=== PATIENT | male | born 1995 | race Two or more races ===

== ENCOUNTER 2024-10-20 12:29 | Inpatient (IN) | payer OTHER ==
[~2024-10-20] VITALS: Ht 170.2 cm; Wt 89.5 kg
--- NOTE | 2024-10-20 13:51 | ED.PDOC ---
GI ASSESSMENT HPI Comments 28 y.o male presents to the ED for a chief complaint of right lower quadrant pain associated with dysuria that started 5 days ago. Patient describes pain as sharp, constant and non radiating with no alleviating factors. Patient went to urgent care for his pain, had blood work and urinalysis done which all came back normal but today states pain worsened. Patient denies any nausea, vomiting, diarrhea, fever, chills, rectal bleeding, hematuria or back pain. Chief Complaint: Abdominal Pain Time Seen by MD: 13:45 Reviewed Notes: Nurses Notes, Medications, Allergies Allergies: Coded Allergies: Penicillins (Verified Allergy, Severe, 10/20/24) Information Source: Patient Mode of Arrival: Ambulatory Timing: Days (5) Duration: Since onset Quality: Sharp Vomitus: None Stool: Normal Severity: Moderate Recent: None Recent Hx of: None Pain Location: RLQ Modifying Factors: Nothing Associated sign and symptoms: Abdominal Pain Past Medical History PAST MEDICAL HISTORY: Asthma, Denies Surgical History: Denies all surgeries Family History Family History: Reviewed,noncontributory to illness Social History Smoker: Non-Smoker Alcohol: Occasionally Drugs: Denies Drug Use Lives In: Home Constitutional: denies: chills, diaphoresis, fatigue, fever, malaise, sweats, weakness, others EENTM: denies: blurred vision, double vision, ear bleeding, ear discharge, ear drainage, ear pain, ear ringing, eye pain, eye redness, hearing loss, mouth pain, mouth swelling, nasal discharge, nose bleeding, nose congestion, nose pain, photophobia, tearing, throat pain, throat swelling, voice changes, others Respiratory: denies: cough, hemoptysis, orthopnea, SOB at rest, shortness of breath, SOB with excertion, stridor, wheezing, others Cardiovascular: denies: chest pain, dizzy spells, diaphoresis, Dyspnea on exertion, edema, irregular heart beat, left arm pain, lightheadedness, palpitations, PND, syncope, others Gastrointestinal: reports: abdominal pain; denies: abdomen distended, blood streaked bowels, constipated, diarrhea, dysphagia, difficulty swallowing, hematemesis, melena, nausea, poor appetite, poor fluid intake, rectal bleeding, rectal pain, vomiting, others Genitourinary: denies: burning, dysuria, flank pain, frequency, hematuria, incontinence, penile discharge, penile sore, pain, testicle pain, testicle swelling, urgency, others Neurological: denies: dizziness, fainting, headache, left sided numbness, left sided weakness, numbness, paresthesia, pre-existing deficit, right sided numbness, right sided weakness, seizure, speech problems, tingling, tremors, weakness, others Musculoskeletal: denies: back pain, gout, joint pain, joint swelling, muscle pain, muscle stiffness, neck pain, others Integumetry: denies: bruises, change in color, change in hair/nails, dryness, laceration, lesions, lumps, rash, wounds, others Allergic/Immunocompromised: denies: Difficulty Healing, Frequent Infections, Hives, Itching, others Hematologic/Lymphatic: denies: anemia, blood clots, easy bleeding, easy bruising, swollen glands, others Endocrine: denies: excessive hunger, excessive sweating, excessive thirst, excessive urination, flushing, intolerance to cold, intolerance to heat, unexplained weight gain, unexplained weight loss, others Psychiatric: denies: anxiety, bipolar disorder, depression, hopeless, panic disorder, schizophrenia, sleepless, suicidal, others All Other Systems: Reviewed and Negative Physical Exam General Appearance: Mild Distress, Normal HEENT: Normal ENT Inspection, Pharynx Normal, TMs Normal Neck: Full Range of Motion, Non-Tender, Normal, Normal Inspection Respiratory: Chest Non-Tender, Lungs Clear, No Accessory Muscle Use, No Respiratory Distress, Normal Breath Sounds Cardiovascular: No Edema, No JVD, No Murmur, No Gallop, Normal Peripheral Pulses, Regular Rate/Rhythm Breast Exam: Deferred Gastrointestinal: RLQ, Tenderness Genitalia: Deferred Pelvic: Deferred Rectal: Deferred Extremities: No calf tenderness, Normal capillary refill, Normal inspection, Normal range of motion, Non-tender, No pedal edema Musculoskeletal : Apperance: Normal Neurologic: Alert, 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 Was a procedure done?: No GI differential Dx Differential Diagnosis: Appendicitis, Esophagitis, Gastroenteritis, Electrolyte Imbalance, Viral X-Ray, Labs, Meds, VS Vital Signs Date Time Temp Pulse Resp B/P (MAP) Pulse Ox O2 Delivery O2 Flow Rate FiO2 10/20/24 12:42 98.2 95 15 163/92 (115) 97 98.2 Lab Test 10/20/24 14:04 10/20/24 13:44 Range/Units White Blood Count 9.9 4.4-10.8 10^3/uL Red Blood Count 5.28 4.5-5.90 10^6/uL Hemoglobin 15.0 13.5-17.5 g/dL Hematocrit 45.0 41.0-53.0 % Mean Corpuscular Volume 85.2 80.0-100.0 fL Mean Corpuscular Hemoglobin 28.5 28.0-32.0 pg Mean Corpuscular Hemoglobin Concent 33.4 32.0-36.0 g/dL Red Cell Distribution Width 13.8 11.8-14.3 % Platelet Count 197 140-450 10^3/uL Mean Platelet Volume 9.8 6.9-10.8 fL Neutrophils (%) (Auto) 73.2 37.0-80.0 % Lymphocytes (%) (Auto) 11.4 10.0-50.0 % Monocytes (%) (Auto) 6.0 0.0-12.0 % Eosinophils (%) (Auto) 9.1 H 0.0-7.0 % Basophils (%) (Auto) 0.3 0.0-2.0 % Neutrophils # (Auto) 7.2 1.6-8.6 10 ^3/uL Lymphocytes # (Auto) 1.1 0.4-5.4 10 ^3/uL Monocytes # (Auto) 0.6 0-1.3 10 ^3/uL Eosinophils # (Auto) 0.9 H 0-0.8 10 ^3/uL Basophils # (Auto) 0 0-0.2 10 ^3/uL Nucleated Red Blood Cells 0.1 % Sodium Level 141 136-145 mmol/L Potassium Level 4.0 3.5-5.1 mmol/L Chloride Level 107 98-107 mmol/L Carbon Dioxide Level 28 20-31 mmol/L Anion Gap 6 5-15 Blood Urea Nitrogen 14 9-23 mg/dL Creatinine 1.08 0.700-1.30 mg/dL Glomerular Filtration Rate Calc 96 >90 mL/min BUN/Creatinine Ratio 13.0 10.0-20.0 Serum Glucose 103 74-106 mg/dL Calcium Level 10.0 8.7-10.4 mg/dL Total Bilirubin 0.4 0.2-1.0 mg/dL Aspartate Amino Transferase (AST) 11 L 13-40 U/L Alanine Aminotransferase (ALT) 14 7-40 U/L Alkaline Phosphatase 96 46-116 U/L Total Protein 7.6 5.7-8.2 g/dL Albumin 4.8 3.2-4.8 g/dL Lipase 72 H 12-53 U/L Urine Color Yellow Yellow Urine Clarity Clear Clear Urine pH 6.0 5.0-9.0 Urine Specific [place] 1.029 1.001-1.035 Urine Protein Negative Negative Urine Ketones Negative Negative Urine Blood Trace H Negative /uL Urine Nitrite Negative Negative Urine Bilirubin Negative Negative Urine Urobilinogen Normal Negative mg/dL Urine Leukocyte Esterase Negative Negative /uL Urine RBC 2 0 - 3 /hpf Urine Microscopic WBC 0-3 /HPF Urine Squamous Epithelial Cells None seen <5 /hpf Urine Bacteria None seen None Seen /hpf Urine Mucus Few None Seen Urine Glucose Normal Normal mg/dL Current Medications Medications (Trade) Dose Ordered Sig/Tree Route Start Time Stop Time Status Last Admin Sodium Chloride 1,000 ml @ 1,000 mls/hr Q1H ONCE IVB 10/20/24 14:00 10/20/24 14:59 DC 10/20/24 14:03 EXAM: CT CT AB PEL WITH IV CON ONLY HISTORY: RLQ pain COMPARISON: None TECHNIQUE: Helical CT images of the abdomen and pelvis were performed with IV contrast. Sagittal and coronal reformatted images were obtained. This CT exam was performed using 1 or more of the following dose reduction techniques: Automated exposure control, adjustment of the mA and/or kv according to patient size, or the use of iterative reconstruction techniques. Radiation Dose Information: CT Dose: CTDI volume is 12.12 mGy. Dose-length product is 644.4 mGy*cm FINDINGS: CT abdomen: The lung bases are clear. The heart is not enlarged. The liver, spleen, gallbladder, pancreas, kidneys, and adrenal glands are unremarkable. No abdominal aortic aneurysm or dissection. CT pelvis: No abnormal bowel dilatation or free air. There is low volume free fluid in the pelvis. The appendix is dilated up to 2.3 cm with an appendicolith present, with surrounding fluid and fat stranding. The appendix is located infracecal. There is wall thickening of the cecum. There are multiple prominent lymph nodes in the right lower quadrant mesenteric fat. The urinary bladder is unremarkable. The prostate is mildly enlarged. IMPRESSION: 1. Acute appendicitis and inflammation of the adjacent cecum. 2. Mild prostatic enlargement. 3. No evidence of bowel obstruction or other acute process in the abdomen or pelvis. Findings were discussed with Dr. Alvarez by telephone on 10/20/2024 at 5:52 p.m. CDT Time of 1ST Reevaluation: 13:48 Reevaluation 1ST: Unchanged Patient Education/Counseling: Diagnosis, Treatment, Prognosis Family Education/Counseling: No Family Present Departure 1 Departure Time of Disposition: 16:28 Impression: Primary Impression: Appendicitis Disposition: 09 ADMITTED INPATIENT Admit to: Med Surg Condition: Guarded Discharged With: Self Comments Right Lower Quadrant Pain - Acute Appendicitis Chief Complaint: Right lower quadrant abdominal pain History of Present Illness: 28-year-old male presenting with four days of progressively worsening right lower quadrant abdominal pain accompanied by nausea. The pain has been gradually increasing in intensity over this period. Review of Systems: Positive for: - Abdominal pain in right lower quadrant - Nausea All other systems reviewed and negative Lab Results: WBC: 9.9 (upper limit of normal) Lipase: 72 (borderline elevated) Other labs unremarkable Imaging and Other Relevant Results: CT Abdomen/Pelvis findings: - Enlarged appendix measuring 2.3 cm - Presence of appendicolith - Surrounding inflammatory stranding - Thickening of adjacent cecum Medical Decision Making: Summary Statement: 28-year-old male presenting with classic symptoms and radiological findings consistent with acute appendicitis. Problem List: 1. Acute appendicitis with appendicolith Differential Diagnosis: 1. Acute appendicitis (most likely) 2. Mesenteric adenitis 3. Cecal diverticulitis 4. Right-sided colitis ED Course: Patient evaluated with labs and CT imaging. Surgical consultation obtained from Dr. Calixto. Plan for hospital admission and likely appendectomy. Assessment and Plan: 1. Acute Appendicitis - CT findings consistent with acute appendicitis showing enlarged appendix with appendicolith and surrounding inflammation - Surgical consultation obtained from Dr. Calixto - Patient to be admitted to the hospital - Plan for likely appendectomy - NPO status - Continue to monitor clinical status Billing Information: ICD-10: K35.80 - Unspecified acute appendicitis Critical Care Note Critical Care Time?: Yes (35 min-critical care time only) Critical care comment: Total critical care time: Approximately 36 minutes Due to a high probability of clinically significant, life threatening deterioration, the patient required my highest level of preparedness to intervene emergently and I personally spent this critical care time directly and personally managing the patient. This critical care time included obtaining a history; examining the patient; pulse oximetry; ordering and review of studies; arranging urgent treatment with development of a management plan; evaluation of patient's response to treatment; frequent reassessment; and, discussions with other providers. This critical care time was performed to assess and manage the high probability of imminent, life-threatening deterioration that could result in multi-organ failure. It was exclusive of separately billable procedures and treating other patients. Stability Stability form required: No I personally scribed for SAMUEL ALVAREZ MD ([email or web address]) on 10/20/24 at 13:51. Electronically submitted by Chetna Briones ([facility]). I personally scribed for SAMUEL ALVAREZ MD ([email or web address]) on 10/20/24 at 16:12. Electronically submitted by Chetna Briones ([facility]). SAMUEL ALVAREZ MD Oct 20, 2024 13:51
[2024-10-20] MEDS: SODIUM CHLORIDE 0.9% 1,000 ML IVB ONE (14:03)
[2024-10-20 14:39] LABS: Basophils # (auto) 0 10 ^3/uL (0-0.2); Basophils % (auto) 0.3 % (0.0-2.0); Eosinophils # (auto) 0.9 10 ^3/uL (0-0.8); Eosinophils % (auto) 9.1 % (0.0-7.0); Lymphocytes # (auto) 1.1 10 ^3/uL (0.4-5.4); Lymphocytes % (auto) 11.4 % (10.0-50.0); Mean Corpuscular Hemoglobin 28.5 pg (28.0-32.0); Mean Corpuscular Hgb Conc. 33.4 g/dL (32.0-36.0); Mean Corpuscular Volume 85.2 fL (80.0-100.0); Monocytes # (auto) 0.6 10 ^3/uL (0-1.3); Neutrophils # (auto) 7.2 10 ^3/uL (1.6-8.6); Neutrophils % (auto) 73.2 % (37.0-80.0); Nucleated Red Blood Cells % 0.1 %; Platelet Count (auto) 197 10^3/uL (140-450); Red Blood Cells 5.28 10^6/uL (4.5-5.90); Red Cell Distribution Width 13.8 % (11.8-14.3); White Blood Cell 9.9 10^3/uL (4.4-10.8)
[2024-10-20 14:44] LABS: Alanine Aminotransferase 14 U/L (7-40); Albumin 4.8 g/dL (3.2-4.8); Alkaline Phosphatase 96 U/L (46-116); Anion Gap 6 (5-15); Bilirubin, Total 0.4 mg/dL (0.2-1.0); Blood Urea Nitrogen 14 mg/dL (9-23); Carbon Dioxide 28 mmol/L (20-31); Glucose 103 mg/dL (74-106); Sodium 141 mmol/L (136-145); Total Protein 7.6 g/dL (5.7-8.2)
[2024-10-20 14:47] LABS: Aspartate Aminotransferase 11 U/L (13-40); Chloride 107 mmol/L (98-107); Lipase 72 U/L (12-53)
[2024-10-20 15:06] LABS: Urine Bacteria None Seen /hpf (None Seen)
[2024-10-20] MEDS: IOHEXOL 300 MG/ML 100ML BOTTLE IJ ONE (15:23)
[2024-10-20 15:28] LABS: Urine Blood TRACE /uL (Negative); Urine Clarity Clear (Clear); Urine Color Yellow (Yellow); Urine Mucus FEW (None Seen); Urine Protein, UAD Negative (Negative); Urine Specific Gravity 1.029 (1.001-1.035); Urine Squamous Epithelial Cell None Seen /hpf (<5); Urine Urobilinogen Normal (Negative)
--- NOTE | 2024-10-20 15:57 | DVH ---
EXAM: CT CT AB PEL WITH IV CON ONLY HISTORY: RLQ pain COMPARISON: None TECHNIQUE: Helical CT images of the abdomen and pelvis were performed with IV contrast. Sagittal and coronal reformatted images were obtained. This CT exam was performed using 1 or more of the following dose reduction techniques: Automated exposure control, adjustment of the mA and/or kv according to p atient size, or the use of iterative reconstruction techniques. Radiation Dose Information: CT Dose: CTDI volume is 12.12 mGy. Dose-length product is 644.4 mGy*cm FINDINGS: CT abdomen: The lung bases are clear. The heart is not enlarged. The liver, spleen, gallbladder, panc reas, kidneys, and adrenal glands are unremarkable. No abdominal aortic aneurysm or dissection. CT pelvis: No abnormal bowel dilatation or free air. There is low volume free fluid in the pelvis. Th e appendix is dilated up to 2.3 cm with an appendicolith present, with surrounding fluid and fat stra nding. The appendix is located infracecal. There is wall thickening of the cecum. There are multiple prominent lymph nodes in the right lower quadrant mesenteric fat. The urinary bladder is unremarkable . The prostate is mildly enlarged. IMPRESSION: 1. Acute appendicitis and inflammation of the adjacent cecum. 2. Mild prostatic enlargement. 3. No evidence of bowel obstruction or other acute process in the abdomen or pelvis. Findings were discussed with Dr. Lau by telephone on 10/20/2024 at 5:52 p.m. CDT.
[2024-10-20 17:10] VITALS: PULSE 73; RESP 18; O2SAT 95
[2024-10-20] MEDS: LIDOCAINE 1% HCL (LOCAL ANESTH.) INJ 20ML MDV ONE (18:47)
[2024-10-20] MEDS: levoFLOXacin 500MG 100 ML IV ONE (19:07)
--- NOTE | 2024-10-20 19:16 | DVHINCON2 ---
Date of service: Oct 20, 2024 Allergies: Coded Allergies: Penicillins (Verified Allergy, Severe, 10/20/24) Vital Signs Vital Signs Date Time Temp Pulse Resp B/P (MAP) Pulse Ox O2 Delivery O2 Flow Rate FiO2 10/20/24 17:12 73 18 137/74 (95) 95 10/20/24 17:10 Room Air* 0 21 10/20/24 12:42 98.2 98.2 Labs/Diagnostic Data Labs Test 10/20/24 14:04 10/20/24 13:44 Range/Units White Blood Count 9.9 4.4-10.8 10^3/uL Red Blood Count 5.28 4.5-5.90 10^6/uL Hemoglobin 15.0 13.5-17.5 g/dL Hematocrit 45.0 41.0-53.0 % Mean Corpuscular Volume 85.2 80.0-100.0 fL Mean Corpuscular Hemoglobin 28.5 28.0-32.0 pg Mean Corpuscular Hemoglobin Concent 33.4 32.0-36.0 g/dL Red Cell Distribution Width 13.8 11.8-14.3 % Platelet Count 197 140-450 10^3/uL Mean Platelet Volume 9.8 6.9-10.8 fL Neutrophils (%) (Auto) 73.2 37.0-80.0 % Lymphocytes (%) (Auto) 11.4 10.0-50.0 % Monocytes (%) (Auto) 6.0 0.0-12.0 % Eosinophils (%) (Auto) 9.1 H 0.0-7.0 % Basophils (%) (Auto) 0.3 0.0-2.0 % Neutrophils # (Auto) 7.2 1.6-8.6 10 ^3/uL Lymphocytes # (Auto) 1.1 0.4-5.4 10 ^3/uL Monocytes # (Auto) 0.6 0-1.3 10 ^3/uL Eosinophils # (Auto) 0.9 H 0-0.8 10 ^3/uL Basophils # (Auto) 0 0-0.2 10 ^3/uL Nucleated Red Blood Cells 0.1 % Sodium Level 141 136-145 mmol/L Potassium Level 4.0 3.5-5.1 mmol/L Chloride Level 107 98-107 mmol/L Carbon Dioxide Level 28 20-31 mmol/L Anion Gap 6 5-15 Blood Urea Nitrogen 14 9-23 mg/dL Creatinine 1.08 0.700-1.30 mg/dL Glomerular Filtration Rate Calc 96 >90 mL/min BUN/Creatinine Ratio 13.0 10.0-20.0 Serum Glucose 103 74-106 mg/dL Calcium Level 10.0 8.7-10.4 mg/dL Total Bilirubin 0.4 0.2-1.0 mg/dL Aspartate Amino Transferase (AST) 11 L 13-40 U/L Alanine Aminotransferase (ALT) 14 7-40 U/L Alkaline Phosphatase 96 46-116 U/L Total Protein 7.6 5.7-8.2 g/dL Albumin 4.8 3.2-4.8 g/dL Lipase 72 H 12-53 U/L Urine Color Yellow Yellow Urine Clarity Clear Clear Urine pH 6.0 5.0-9.0 Urine Specific [place] 1.029 1.001-1.035 Urine Protein Negative Negative Urine Ketones Negative Negative Urine Blood Trace H Negative /uL Urine Nitrite Negative Negative Urine Bilirubin Negative Negative Urine Urobilinogen Normal Negative mg/dL Urine Leukocyte Esterase Negative Negative /uL Urine RBC 2 0 - 3 /hpf Urine Microscopic WBC 0-3 /HPF Urine Squamous Epithelial Cells None seen <5 /hpf Urine Bacteria None seen None Seen /hpf Urine Mucus Few None Seen Urine Glucose Normal Normal mg/dL Assessment [id number] AC APPENDICITIS LAP/OPEN APPENDECTOMY Plan discussed with: Patient JOSÉ MONTERO MD Oct 20, 2024 19:16
[2024-10-20] MEDS ORDERED: fentaNYL CITRATE 100 MCG/2 ML VL ONE (19:22)
[2024-10-20] MEDS ORDERED: MIDAZOLAM HCL 2MG/2ML 2ml VIAL (1mg/ml) ONE (19:22)
[2024-10-20] MEDS ORDERED: PROPOFOL 10 MG/ML 20 ML IV ONE (19:22)
[2024-10-20] MEDS ORDERED: LIDOCAINE 2% (LOCAL ANESTH.) PF 5ml SDV ONE (19:23)
[2024-10-20] MEDS ORDERED: ROCURONIUM 10MG/ML 10ML VIAL IV ONE (19:23)
[2024-10-20] MEDS ORDERED: ONDANSETRON HCL 4 MG/2 ML VIAL ONE (19:24)
--- NOTE | 2024-10-20 19:40 | DVHINCON2 ---
DATE OF CONSULTATION: 10/20/2024 HISTORY OF PRESENT ILLNESS: This patient is 28 years old, coming in with right lower quadrant pain, got worse. He has had this pain for about 4-5 days, some nausea, no vomiting, no constipation, diarrhea. No history of hematemesis, melena. No bleeding per rectum. PAST MEDICAL HISTORY: Asthma. No diabetes, hypertension. PAST SURGICAL HISTORY: Nasal surgery and right knee surgery. PHYSICAL EXAMINATION: VITAL SIGNS: Afebrile, stable signs. HEENT: With no evidence of pallor, cyanosis, or jaundice. NECK: Supple, nontender with no thyromegaly, lymphadenopathy. CHEST AND LUNGS: Clear. HEART: Within normal limits. ABDOMEN: Soft, tender in the right lower quadrant with evidence of rebound. EXTREMITIES: Unremarkable. NEUROLOGIC: Intact. CLINICAL IMPRESSION: Acute appendicitis. PLAN: Laparoscopic, possible open appendectomy. Benefits, risks discussed and a consent obtained. MD AVERY Marquez/DIONICIO TID: [id number] RECEIPT: [id number]
[2024-10-20] MEDS ORDERED: HYDROmorphone HCL 2 MG/ML VL/or syr ONE (21:23)
--- NOTE | 2024-10-20 22:05 | DVHOP2 ---
Operative Report [id number] ACUTE ON CHRONIC POSSIBLY RUPTURED APPENDICITIS LAP PERLA OPEN DRAINAGE OF INTRAABD ABSCESS, LYSIS OF DENSE ADHESIONS OPEN APPENDECTOMY PARTIAL CECECTOMY ONE DRAIN EBL 25 CC NO COMPLICATION JOSÉ MONTERO MD Oct 20, 2024 22:04
[2024-10-20] MEDS ORDERED: GLYCOPYRROLATE 0.2 MG/ML 1ML VIAL ONE (22:16)
[2024-10-20] MEDS ORDERED: NEOSTIGMINE 1 MG/ML INJ (10mg/10ML VIAL) ONE (22:16)
[2024-10-20 22:18] VITALS: O2SAT 100
[2024-10-20] MEDS ORDERED: NITROGLYCERIN 0.4 MG SL TAB SL PRN (22:30)
[2024-10-20] MEDS: HYDROmorphone HCL 2 MG/ML VL/or syr IV PRN (22:30)
[2024-10-20] MEDS ORDERED: ONDANSETRON HCL 4 MG/2 ML VIAL IV PRN (22:30)
[2024-10-20] MEDS ORDERED: MORPHINE SULFATE INJ 2 MG/ml SYRG IV PRN (22:30)
[2024-10-20] MEDS: HYDROmorphone HCL 2 MG/ML VL/or syr ONE (22:38)
[2024-10-20] MEDS ORDERED: VANCOMYCIN PER PHARMACY 0 MG IV SCH (22:45)
[2024-10-20] MEDS ORDERED: HYDROmorphone HCL 2 MG/ML VL/or syr IV PRN (22:45)
[2024-10-20] MEDS: ACETAMINOPHEN IV 100 ML IV ONE (23:02)
[2024-10-20] MEDS: ACETAMINOPHEN IV 1000 MG/100ML (10MG/ML) IV ONE (23:04)
[2024-10-20] MEDS: PANTOPRAZOLE 40 MG/10 ML VIAL INJ IV ONE (23:15)
--- NOTE | 2024-10-20 23:31 | DVHOP ---
DATE OF SURGERY: 10/20/2024 PREOPERATIVE DIAGNOSES: Acute appendicitis, intra-abdominal abscess and dense adhesions. POSTOPERATIVE DIAGNOSES: Acute appendicitis, intra-abdominal abscess and dense adhesions. OPERATIVE FINDINGS: Included extremely scarred down and chronically inflamed appendix with intraabdominal abscess and dense adhesions. A lot of adhesions noted in the right lower quadrant. PROCEDURES: Laparoscopic lysis of adhesions with open exploratory laparotomy with drainage of intra-abdominal abscess, lysis of adhesions and open appendectomy with partial cecectomy as the appendix base could not be clearly identified and the base of the appendix presumably was in the inflamed portion of the cecum, so partial cecectomy was done to ensure that the complete appendectomy was carried out. SURGEON: Bo Calixto MD [employer] REPRESENTATIVE: None. ANESTHESIA: General. BLOOD LOSS: Close to 25 mL. DRAINS: One drain was used. COMPLICATIONS: No complications were encountered. DESCRIPTION OF PROCEDURE: The patient was prepped and draped in the usual sterile fashion in the supine position and a supraumbilical incision was applied to the fascia and a Veress needle was introduced and CO2 insufflation was started to a pressure of 15 mmHg. The needle was withdrawn, replaced by the 12 mm trocar and a telescope was introduced and two 5 mm ports were applied more inferiorly, one above the symphysis, the third midway between the upper two and the camera was moved to the lowermost 5 mm port able to proceed with surgery. The adhesions were taken down, very edematous and thickened. Presumably appendiceal tip was identified and attempts were made for meticulous dissection to trace out the appendix with the base of the appendix and the cecum was also inflamed, but it was realized that it was not possible to do this laparoscopically, decision was made to do this open surgery. The CO2 insufflation was stopped and the trocars were withdrawn and a vertical midline incision was applied, connecting the supraumbilical and infraumbilical trocars sites and taken down to the fascia. The abdomen was entered and with suitable exposure, the small bowel was identified going into the ileocecal junction area and that is where also a lot of adhesions were noted and meticulous care was taken to avoid any ureteric or nerve or vessel injury in that location, but there was dense scar tissue in that location there was noted and Harmonic device was used to separate the cecum from the retroperitoneal tissue to identify the possible base, but the base of the appendix was completely scarred down with the inflamed wall posteriorly as well and a decision was made to then identify the mesoappendix. It was clipped at the base, divided distal to that using Harmonic device and with blunt and suction dissection, the appendix was found to be acutely and chronically inflamed as well and not clearly identified. A lot of scar tissue was surrounding it and then it was taken up to the cecum and the Endo-JARED stapling device was used to transect the base of the appendix along with the partial cecal wall because it was inflamed as well and once this was done, the staple line was sutured with reinforced sutured with a 3-0 silk suture at various locations and then the specimen was removed for pathology. Irrigation performed. Hemostasis was secured and it was ensured that the ureter was kept out of harm's way even though the scar tissue was very dense in that location. A size 19 Kvng drainage tube was placed in the right lower quadrant and the pelvis and bring it from the lowermost 5 mm port. After that, one port had been withdrawn and secured the drain with a silk suture. Sponge count, needle count was reported correct. The fascia was brought together using the PDS suture. Skin incisions were brought together using a stapling device. Dressing was applied. The patient tolerated the procedure well and was taken back to recovery room in stable condition. MD AVERY Marquez/DIANE TID: [id number] RECEIPT: [id number] cc: RACHAEL QUISPE
--- NOTE | 2024-10-20 23:40 | DVHHPRES ---
History of Present Illness Resident Creating Document: RACHAEL SALAZAR RESIDENT Reason for Visit: abdominal pian History of Present Illness Mr. Wallace, a 28-year-old male with no significant medical except allergic history presented to the emergency department with a chief complaint of progressive sharp, constant right lower quadrant pain and dysuria for the past five days with intermittent nausea. Despite normal blood work and urinalysis results from an urgent care visit, his pain has worsened. He denies any associated symptoms such as vomiting, diarrhea, fever, chills, rectal bleeding, hematuria, or back pain. The patient has acute appendicitis with adjacent cecal inflammation, mild prostatic enlargement, and no signs of bowel obstruction or other acute abdominal or pelvic processes. Surgery demand generation manager Dr. Calixto evaluated the patient and decided for urgent in-hospital appendicectomy with abdominal exploration, which med surgery was change to open hello abdomen surgery. He has a severe allergy to penicillins. Pulmonary: Asthma Rheumatologic: Other (Seasonal allergy) Endocrine: Other (Obesity) Past Surgical History: None Family History: Other (Noncontributory to the admission) Smoke: No ALCOHOL: occassional Lives: with Family (At home) Review of Systems Constitutional: Yes: Malaise Eyes: No: Pain, Vision change, Conjunctivae inflammation, Eyelid inflammation, Other, Redness ENT: No: Ear pain, Ear discharge, Nose pain, Nose discharge, Nose congestion, Mouth pain, Mouth swelling, Throat pain, Throat swelling, Other Respiratory: No: Cough, Dry, Shortness of breath, SOB with excertion, Wheezing, Hemoptysis, Pleuritic Pain, Sputum, Wheezing, Other Cardiovascular: No: Chest Pain, Palpitations, Orthopnea, Paroxysmal Noc. Dyspnea, Edema, Lt Headedness, Other Gastrointestinal: Nausea, Abdominal Pain; No: Vomiting, Diarrhea, Constipation, Melena, Hematochezia Genitourinary: No Dysuria, No Frequency, No Incontinence, No Hematuria, No Retention, No Other Musculoskeletal: No: other, neck pain, shoulder pain, arm pain, back pain, hand pain, leg pain, foot pain Skin: No: Rash, Lesions, Jaundice, Bruising, Other Neurological: No: Weakness, Numbness, Incoordination, Change in speech, Confusion, Seizures, Other Allergies: Coded Allergies: Penicillins (Verified Allergy, Severe, 10/20/24) Medications Current Medications Medications Dose Ordered Sig/Tree Route Start Time Stop Time Status Last Admin Dose Admin Ondansetron HCl 4 mg Q4HP PRN IV 10/20/24 22:30 Morphine Sulfate 2 mg Q4HPRN PRN IV 10/20/24 22:30 Nitroglycerin 0.4 mg Q5MINP PRN SL 10/20/24 22:30 Morphine Sulfate 2 mg Q30M PRN IV 10/20/24 22:30 Hydromorphone HCl 0.5 mg Q10M PRN IV 10/20/24 22:45 10/20/24 23:26 Vancomycin HCl 0 ml @ 0 mls/hr UD IV 10/20/24 22:45 UNV Ciprofloxacin 200 ml @ 200 mls/hr Q12HR IV 10/21/24 10:00 Metronidazole 100 ml @ 100 mls/hr Q8HR IV 10/21/24 06:00 Vancomycin HCl 250 ml @ 166.667 mls/hr Q2H IV 10/20/24 23:30 10/21/24 02:59 Pantoprazole Sodium 40 mg DAILY IV 10/21/24 10:00 Albuterol 1.25 mg Q4HP PRN NEB 10/20/24 23:15 UNV Exam Vital Signs Vital Signs Date Time Temp Pulse Resp B/P (MAP) Pulse Ox O2 Delivery O2 Flow Rate FiO2 10/20/24 22:18 100 Mask 9.0 10/20/24 22:18 100 10/20/24 17:12 73 18 137/74 (95) 10/20/24 12:42 98.2 98.2 Exam Noted in PACU area post surgically General Appearance: Alert, Oriented X3, Cooperative, No acute distress HEENT: Atraumatic, PERRLA, EOMI, Mucous membr. moist/pink Respiratory: Clear to auscultation, Normal air movement Cardiovascular: Regular rate, Normal S1, Normal S2, No murmurs, Gallops, Rubs Abdominal: Other (Post surgical abdomen, clean wound well dressed. No active issues noted.) Extremities: No clubbing, No cyanosis, No edema, Normal pulses, No tenderness/swelling Skin: No rashes, No breakdown Neuro: Normal speech, Strength at 5/5 X4 ext, Normal tone, Sensation intact, Cranial nerves 3-12 NL, Reflexes 2+, Other (Post surgical pain, otherwise normal, deferred movement or gait.) Psych/Mental Status: Mental status NL, Mood NL Labs/Xrays Labs Test 10/20/24 14:04 10/20/24 13:44 Range/Units White Blood Count 9.9 4.4-10.8 10^3/uL Red Blood Count 5.28 4.5-5.90 10^6/uL Hemoglobin 15.0 13.5-17.5 g/dL Hematocrit 45.0 41.0-53.0 % Mean Corpuscular Volume 85.2 80.0-100.0 fL Mean Corpuscular Hemoglobin 28.5 28.0-32.0 pg Mean Corpuscular Hemoglobin Concent 33.4 32.0-36.0 g/dL Red Cell Distribution Width 13.8 11.8-14.3 % Platelet Count 197 140-450 10^3/uL Mean Platelet Volume 9.8 6.9-10.8 fL Neutrophils (%) (Auto) 73.2 37.0-80.0 % Lymphocytes (%) (Auto) 11.4 10.0-50.0 % Monocytes (%) (Auto) 6.0 0.0-12.0 % Eosinophils (%) (Auto) 9.1 H 0.0-7.0 % Basophils (%) (Auto) 0.3 0.0-2.0 % Neutrophils # (Auto) 7.2 1.6-8.6 10 ^3/uL Lymphocytes # (Auto) 1.1 0.4-5.4 10 ^3/uL Monocytes # (Auto) 0.6 0-1.3 10 ^3/uL Eosinophils # (Auto) 0.9 H 0-0.8 10 ^3/uL Basophils # (Auto) 0 0-0.2 10 ^3/uL Nucleated Red Blood Cells 0.1 % Sodium Level 141 136-145 mmol/L Potassium Level 4.0 3.5-5.1 mmol/L Chloride Level 107 98-107 mmol/L Carbon Dioxide Level 28 20-31 mmol/L Anion Gap 6 5-15 Blood Urea Nitrogen 14 9-23 mg/dL Creatinine 1.08 0.700-1.30 mg/dL Glomerular Filtration Rate Calc 96 >90 mL/min BUN/Creatinine Ratio 13.0 10.0-20.0 Serum Glucose 103 74-106 mg/dL Calcium Level 10.0 8.7-10.4 mg/dL Total Bilirubin 0.4 0.2-1.0 mg/dL Aspartate Amino Transferase (AST) 11 L 13-40 U/L Alanine Aminotransferase (ALT) 14 7-40 U/L Alkaline Phosphatase 96 46-116 U/L Total Protein 7.6 5.7-8.2 g/dL Albumin 4.8 3.2-4.8 g/dL Lipase 72 H 12-53 U/L Urine Color Yellow Yellow Urine Clarity Clear Clear Urine pH 6.0 5.0-9.0 Urine Specific [place] 1.029 1.001-1.035 Urine Protein Negative Negative Urine Ketones Negative Negative Urine Blood Trace H Negative /uL Urine Nitrite Negative Negative Urine Bilirubin Negative Negative Urine Urobilinogen Normal Negative mg/dL Urine Leukocyte Esterase Negative Negative /uL Urine RBC 2 0 - 3 /hpf Urine Microscopic WBC 0-3 /HPF Urine Squamous Epithelial Cells None seen <5 /hpf Urine Bacteria None seen None Seen /hpf Urine Mucus Few None Seen Urine Glucose Normal Normal mg/dL Assessment/Plan Assessment/Plan # acute appendicitis: tenderness RLQ pain with CT evidence of enlarged appendix measuring 2.3 cm with an appendicolith, surrounding inflammatory stranding, and thickening of the adjacent cecum. NPO, IV fluid, IV antibiotics to continue with the appropriate surgical intervention. # ruptured appendix status post open abdominal appendicectomy, partial Ceacectomy, abscess drainage and abdominal exploration: IV vancomycin, ciprofloxacin, metronidazole to continue, further follow up and management as per General surgery. Abdominal binder to continue, incentive spirometry to continue. Follow up blood cultures to rule out hematogenous spread of bacteremia. # intra-abdominal abscess complicated with fibrous adhesions: Status post surgery on broad-spectrum antibiotics, surgical incision and drainage with adhesion removal. Bedrest, IV fluid to continue. Follow intraoperative cultures # History of allergy /eosinophilia: to likely due to underlying atopy: As needed cetirizine at home, started loratadine in-hospital. # Acute pancreatitis to rule out: mild elevation of lipase, 72: Check lipid panel, HbA1c and repeat lipase tomorrow morning, daily CBC and CMP to follow up. # microscopic hematuria: UA unremarkable, most likely traumatic, UC extra follow up. # Severe penicillin allergy: Avoid penicillin and cephalosporins. # Mild prostatic enlargement: UA unremarkable, culture sent, mostly asymptomatic # known asthma: As needed albuterol q.4 hours as needed and budesonide/form oterol q.12 hours as needed. No acute exacerbation noted, continue as needed albuterol neb. # grade 1 obesity: Weight loss counseling done bedside for BMI 30.4, HbA1c pending. DVT prophylaxis with SCDs for now. GI prophylaxis with IV PPI Keep on Riojas's for now, DC when appropriate at earliest/patient is mobile. Code status: Full code, discussed over 35 minutes. Plan discussed with the patient, agreeable to the admission and medical management. Discussed with Dr. Dos Santos. Plan discussed with: Patient, Other (Primary team, RN.) My Orders Orders - RACHAEL SALAZAR RESIDENT Procedure Category Date Status Time Admit ADMIT 10/20/24 Transmitted 22:28 Code Status CODE 10/20/24 Transmitted 22:28 Vital Signs JD 10/20/24 In Process 22:28 Review Orders With JD 10/20/24 In Process Adm.Md 22:28 Maintain Bed Rest JD 10/20/24 In Process 22:28 Npo (Nothing By DIET 10/21/24 Transmitted Mouth) Diet Breakfast Notify Md Of Changes JD 10/20/24 In Process From Base 22:28 Advance Directive JD 10/20/24 In Process 22:28 Patient Condition ORDERS 10/20/24 Transmitted 22:28 Allergies JD 10/20/24 In Process 22:28 Ondansetron Hcl PHA 10/20/24 In Process (Zofran) 22:30 Morphine Sulfate PHA 10/20/24 In Process Injection 22:30 Sequential JD 10/20/24 In Process Compression Device Nitroglycerin PHA 10/20/24 In Process Sublingual (Ntrostat 22:30 Morphine Sulfate PHA 10/20/24 In Process Injection 22:30 Oxygen By Nasal RT 10/20/24 Transmitted Cannula 22:28 Stat Ekg For Chest JD 10/20/24 In Process Pain 22:28 Notify Of Changes JD 10/20/24 In Process From Base 22:28 Facilities Coordinator For JD 10/20/24 In Process 24 Hours 22:28 Emergency Dysrhythmia JD 10/20/24 In Process Protocol 22:28 Rhythm Strips Once JD 10/20/24 In Process Every Shift 22:28 Lactated Ringer's PHA 10/20/24 In Process 22:45 Vancomycin Per PHA 10/20/24 Pending Pharmacy 22:45 Ciprofloxacin PHA 10/21/24 In Process 400mg/200ml (Cipro Iv) 10:00 Metronidazole PHA 10/21/24 In Process 500mg/100ml (Flagyl 06:00 Complete Blood Count LAB 10/21/24 Verified 05:00 Complete Blood Count LAB 10/22/24 Verified 05:00 Complete Blood Count LAB 10/23/24 Verified 05:00 Comprehensive LAB 10/21/24 Verified Metabolic Panel 05:00 Comprehensive LAB 10/22/24 Verified Metabolic Panel 05:00 Comprehensive LAB 10/23/24 Verified Metabolic Panel 05:00 Comprehensive LAB 10/24/24 Verified Metabolic Panel 05:00 Incentive Spirometry ORDERS 10/20/24 Transmitted Q 1hr 22:43 * Surgical Consult CONS 10/20/24 Transmitted Lipase LAB 10/21/24 Verified 04:00 Lipid Panel LAB 10/21/24 Verified 04:00 Pantoprazole PHA 10/21/24 In Process (Protonix) 10:00 Urine Bacterial NAEEM 10/20/24 Logged Culture 23:10 Loratadine Tablet PHA 10/21/24 Logged (Claritin Tablet) 10:00 Albuterol Medneb PHA 10/20/24 Logged (Ventolin Medneb) 23:15 Date of Service: Oct 20, 2024 Billing Provider: JUDY DOS SANTOS MD Common Visit Codes: [id number] INP/OBS CARE (HIGH) RACHAEL SALAZAR RESIDENT Oct 20, 2024 23:39 JUDY DOS SANTOS MD Oct 21, 2024 11:22
[2024-10-20 23:54] VITALS: BP 126/80; PULSE 110; RESP 18; TEMP 98.6; O2SAT 95
[2024-10-21] VITALS (11 sets, daily range): BP systolic 114–137; BP diastolic 57–86; PULSE 71–105; RESP 16–19; TEMP 97.6–98.6; O2SAT 92–100
[2024-10-21] MEDS: ONDANSETRON HCL 4 MG/2 ML VIAL IV ONE (00:09)
[2024-10-21] MEDS: VANCOMYCIN 1GM/200ML PM 250 ML IV SCH ×2 (00:54→14:29)
[2024-10-21] MEDS ORDERED: BUDE1AER4 PO (00:59)
[2024-10-21] MEDS ORDERED: ALBU108A5 PO (00:59)
[2024-10-21] MEDS: MORPHINE SULFATE INJ 2 MG/ml SYRG IV PRN (01:25)
[2024-10-21] MEDS: LACTATED RINGER'S 1,000 ML IV ONE (02:16)
[2024-10-21] MEDS: MORPHINE SULFATE INJ 2 MG/ml SYRG IV ONE (05:11)
[2024-10-21 05:56] LABS: Basophils # (auto) 0 10 ^3/uL (0-0.2); Basophils % (auto) 0.3 % (0.0-2.0); Eosinophils # (auto) 0.1 10 ^3/uL (0-0.8); Eosinophils % (auto) 0.8 % (0.0-7.0); Hematocrit 40.1 % (41.0-53.0); Hemoglobin 13.5 g/dL (13.5-17.5); Lymphocytes # (auto) 0.9 10 ^3/uL (0.4-5.4); Lymphocytes % (auto) 8.8 % (10.0-50.0); Mean Corpuscular Hemoglobin 28.7 pg (28.0-32.0); Mean Corpuscular Hgb Conc. 33.6 g/dL (32.0-36.0); Mean Corpuscular Volume 85.4 fL (80.0-100.0); Monocytes # (auto) 0.6 10 ^3/uL (0-1.3); Monocytes % (auto) 5.9 % (0.0-12.0); Neutrophils # (auto) 8.3 10 ^3/uL (1.6-8.6); Neutrophils % (auto) 84.2 % (37.0-80.0); Nucleated Red Blood Cells % 0.1 %; Platelet Count (auto) 182 10^3/uL (140-450); Red Blood Cells 4.69 10^6/uL (4.5-5.90); Red Cell Distribution Width 13.5 % (11.8-14.3); White Blood Cell 9.9 10^3/uL (4.4-10.8)
[2024-10-21 06:16] LABS: Alanine Aminotransferase 10 U/L (7-40); Albumin 4.1 g/dL (3.2-4.8); Alkaline Phosphatase 78 U/L (46-116); Anion Gap 7 (5-15); Bilirubin, Total 0.6 mg/dL (0.2-1.0); Blood Urea Nitrogen 11 mg/dL (9-23); Calcium 9.1 mg/dL (8.7-10.4); Carbon Dioxide 28 mmol/L (20-31); Chloride 104 mmol/L (98-107); Lipase 41 U/L (12-53); Potassium 4.7 mmol/L (3.5-5.1); Sodium 139 mmol/L (136-145); Total Protein 6.4 g/dL (5.7-8.2)
[2024-10-21 06:18] LABS: Aspartate Aminotransferase 8 U/L (13-40); Glucose 128 mg/dL (74-106)
[2024-10-21] MEDS: metroNIDAZOLE 500MG/100ML 100 ML IV SCH (06:27)
[2024-10-21 06:33] LABS: Triglycerides 47 mg/dL (< 150)
[2024-10-21 06:34] LABS: LDL Cholesterol 82 mg/dL (< 100)
[2024-10-21 06:35] LABS: Cholesterol 126 mg/dL (< 200)
[2024-10-21 06:38] LABS: HDL Cholesterol 30 mg/dL (40-59)
[2024-10-21 08:19] LABS: Triglycerides 47 mg/dL (< 150)
[2024-10-21 08:20] LABS: LDL Cholesterol 84 mg/dL (< 100)
[2024-10-21 08:21] LABS: Cholesterol 129 mg/dL (< 200)
[2024-10-21 08:22] LABS: HDL Cholesterol 35 mg/dL (40-59)
[2024-10-21] MEDS: PANTOPRAZOLE 40 MG/10 ML VIAL INJ IV SCH (09:40)
[2024-10-21] MEDS: CIPROFLOXACIN 400MG/200ML 200 ML IV SCH (09:40)
--- NOTE | 2024-10-21 09:58 | DVHPNRES ---
Progress Note Date Seen: Oct 21, 2024 Resident Creating Document: DANIELLA LÓPEZ RESIDENT Medical Necessity Reason Pt with a Central, PICC or Fol: No Subjective Review of Systems Mr. Wallace, a 28-year-old male with no significant medical except allergic history presented to the emergency department with a chief complaint of progressive sharp, constant right lower quadrant pain and dysuria for the past five days with intermittent nausea. Despite normal blood work and urinalysis results from an urgent care visit, his pain has worsened. He denies any associated symptoms such as vomiting, diarrhea, fever, chills, rectal bleeding, hematuria, or back pain. PMH: Asthma PSH: No previous surgeries except current sx Family history: Noncontributory Personal history: Lives at home with family. Denies smoking, other drug abuse but occasional alcohol Allergies: Seasonal allergies, penicillins Home medications: None Patient seen and examined at the bedside. Postoperative day 1 status post open abdominal appendicectomy, partial Ceacectomy, abscess drainage and abdominal exploration. Overnight events reviewed, patient currently reporting abdominal pain at the surgical site and some suprapubic pain, catheter in place and given morphine for pain. Objective vital signs Vital Sign Date Time Temp Pulse Resp B/P (MAP) Pulse Ox O2 Delivery O2 Flow Rate FiO2 10/21/24 08:30 97.6 77 18 119/76 (90) 100 97.6 10/21/24 00:50 Nasal Cannula* 2 28 Total Intake and Output 10/20/24 10/20/24 10/21/24 15:00 23:00 07:00 Intake Total 250 ml Output Total 400 ml Balance -150 ml medications Current Medications Medications Dose Ordered Sig/Tree Route Start Time Stop Time Status Last Admin Dose Admin Ondansetron HCl 4 mg Q4HP PRN IV 10/20/24 22:30 Morphine Sulfate 2 mg Q4HPRN PRN IV 10/20/24 22:30 10/21/24 08:24 2 MG Nitroglycerin 0.4 mg Q5MINP PRN SL 10/20/24 22:30 Morphine Sulfate 2 mg Q30M PRN IV 10/20/24 22:30 Vancomycin HCl 0 ml @ 0 mls/hr UD IV 10/20/24 22:45 UNV Ciprofloxacin 200 ml @ 200 mls/hr Q12HR IV 10/21/24 10:00 Metronidazole 100 ml @ 100 mls/hr Q8HR IV 10/21/24 06:00 10/21/24 06:27 100 MLS/HR Pantoprazole Sodium 40 mg DAILY IV 10/21/24 10:00 Albuterol 1.25 mg Q4HP PRN NEB 10/20/24 23:15 Examination Pt is lying on bed General Appearance: Alert, Oriented X3, Cooperative, Moderate distress due to pain HEENT: Atraumatic, Mucous membranes moist/pink Respiratory: Clear to auscultation, Normal air movement, No added sounds Cardiovascular: Regular rate, Normal S1, Normal S2, No murmurs Abdominal: abdominal binder in place, surgical site is no signs of infection or inflammation, ZEUS drain in place, hypoactive bowel sounds, tenderness Extremities: No edema, Normal pulses, No tenderness/swelling Skin: No Significant rash, except past surgical scars Neuro: Normal speech, sensorimotor deficits none Psych/Mental Status: Mental status NL, Mood NL Nurse was there as sharperone during examination laboratory and microbiology Laboratory Tests 10/21/24 04:56 Test 10/21/24 04:56 Range/Units Serum Glucose 128 H 74-106 mg/dL Labs and/or images reviewed: Labs reviewed by me, Image(s) reviewed by me Problem List/Assessment/Plan Problem List/Assessment/Plan # Acute appendicitis complicated by rupture and abscess s/p open appendicectomy with drainage, partial Ceacectomy # Intra-abdominal abscess complicated with fibrous adhesions - CT evidence of enlarged appendix measuring 2.3 cm with an appendicolith, surrounding inflammatory stranding, and thickening of the adjacent cecum. - Postoperative day 1 status post open abdominal appendicectomy, partial Ceacectomy, abscess drainage and abdominal exploration - NPO, IV fluid, IV antibiotics - IV vancomycin, ciprofloxacin, metronidazole to continue, further follow up and management as per General surgery. - incentive spirometry to continue. - Follow up blood cultures to rule out hematogenous spread of bacteremia. # Acute pancreatitis ruled out # History of allergy /eosinophilia - As needed cetirizine at home, started loratadine in-hospital. # Acute pancreatitis to rule out: mild elevation of lipase, 72: Check lipid panel, HbA1c and repeat lipase tomorrow morning, daily CBC and CMP to follow up. # Microscopic hematuria ruled out # Mild prostatic enlargement: UA unremarkable, culture sent, mostly asymptomatic # H/o Asthma No acute exacerbation - As needed albuterol q.4 hours as needed and budesonide/formoterol q.12 hours as needed. # Grade 1 obesity: - Weight loss counseling done bedside for BMI 30.4, HbA1c 5.2 Protonix SCDs Diet as per surgical team Goals of care discussed with the patient for more than 29 minutes: Full code status Case discussed with Dr. Matute, patient and nurse Plan discussed with: Patient My Orders My Orders Orders - DANIELLA LÓPEZ Procedure Category Date Status Time Drug Screen LAB 10/21/24 Logged 08:01 Date of Service: Oct 21, 2024 Billing Provider: EDWARD REIS MD Common Visit Codes: [id number] INP/OBS CARE(HIGH) DANIELLA LÓPEZ RESIDENT Oct 21, 2024 09:58 EDWARD REIS MD Oct 24, 2024 00:00
[2024-10-21] MEDS: LORATADINE 10 MG TAB PO ONE (10:00)
[2024-10-21] MEDS: D5W/SOD CHL 0.45% 1,000 ML IV SCH (12:51)
[2024-10-21] MEDS ORDERED: ACETAMINOPHEN 325 MG TAB PO SCH (14:00)
[2024-10-21] MEDS: IBUPROFEN 600 MG TAB PO SCH (14:00)
--- NOTE | 2024-10-21 15:20 | DVHOP2 ---
Operative Report AFEBRILE VSS ABD SOFT WOUND DRESSING DRY DRAIN 30 CC SEROSANGUINEOUS FERRARI IN PLACE DRAINING CLEAR LIQUIDS NO BM NO FLATUS NO COMPLICATIONS KEEP NPO IV ABX CLOSE OBSERVATION JOSÉ MONTERO MD Oct 21, 2024 15:20
--- NOTE | 2024-10-21 15:29 | DVHPN2 ---
Progress Note Date Seen: Oct 21, 2024 Medical Necessity Reason Pt with a Central, PICC or Fol: No Objective vital signs Vital Sign Date Time Temp Pulse Resp B/P (MAP) Pulse Ox O2 Delivery O2 Flow Rate FiO2 10/21/24 13:30 98.0 89 18 114/73 (87) 93 98.0 10/21/24 09:55 Nasal Cannula 2.0 10/21/24 09:55 28 Total Intake and Output 10/20/24 10/20/24 10/21/24 15:00 23:00 07:00 Intake Total 250 ml Output Total 400 ml Balance -150 ml medications Current Medications Medications Dose Ordered Sig/Tree Route Start Time Stop Time Status Last Admin Dose Admin Ondansetron HCl 4 mg Q4HP PRN IV 10/20/24 22:30 Nitroglycerin 0.4 mg Q5MINP PRN SL 10/20/24 22:30 Morphine Sulfate 2 mg Q30M PRN IV 10/20/24 22:30 Vancomycin HCl 0 ml @ 0 mls/hr UD IV 10/20/24 22:45 Ciprofloxacin 200 ml @ 200 mls/hr Q12HR IV 10/21/24 10:00 10/21/24 09:40 200 MLS/HR Metronidazole 100 ml @ 100 mls/hr Q8HR IV 10/21/24 06:00 10/21/24 12:50 100 MLS/HR Pantoprazole Sodium 40 mg DAILY IV 10/21/24 10:00 10/21/24 09:40 40 MG Albuterol 1.25 mg Q4HP PRN NEB 10/20/24 23:15 Vancomycin HCl 250 ml @ 200 mls/hr Q12H IV 10/21/24 14:00 10/21/24 14:29 200 MLS/HR Dextrose/Sodium Chloride 1,000 ml @ 125 mls/hr Q8H IV 10/21/24 10:45 10/21/24 12:51 125 MLS/HR Acetaminophen 650 mg Q4HP PO 10/21/24 14:00 Hold Ibuprofen 600 mg Q8HP PO 10/21/24 14:00 Hydromorphone HCl 0.25 mg Q4HPRN PRN IV 10/21/24 15:00 laboratory and microbiology Laboratory Tests 10/21/24 04:56 Test 10/21/24 04:56 Range/Units Serum Glucose 128 H 74-106 mg/dL Problem List/Assessment/Plan Problem List/Assessment/Plan AFEBRILE VSS ABD SOFT WOUND DRESSING DRY DRAIN 30 CC SEROSANGUINEOUS FERRARI IN PLACE DRAINING CLEAR LIQUIDS NO BM NO FLATUS NO COMPLICATIONS KEEP NPO IV ABX CLOSE OBSERVATION Plan discussed with: Patient My Orders My Orders Orders - JOSÉ MONTERO MD Procedure Category Date Status Time Npo (Nothing By DIET 10/20/24 Transmitted Mouth) Diet Dinner Obtain Consent For: ORDERS 10/20/24 Transmitted 17:48 Obtain Consent For JD 10/20/24 In Process Anesthesia 17:48 Abdominal Binder JD 10/20/24 In Process 23:05 Hydromorphone PHA 10/21/24 In Process Injection (Dilaudid 15:00 JOSÉ MONTERO MD Oct 21, 2024 15:29
[2024-10-21] MEDS: HYDROmorphone HCL 2 MG/ML VL/or syr IV PRN (17:05)
[2024-10-21 19:13] LABS: Benzodiazephine Screen, Urine Neg (NEGATIVE); Opiate Scree,Urine Pos (NEGATIVE)
[2024-10-21 19:21] LABS: Amphetamine Screen, Urine Neg (NEGATIVE); Barbiturate Scree,Urine Neg (NEGATIVE); Cannabinoid Screen, Urine Neg (NEGATIVE); Cocaine Screen, Urine Neg (NEGATIVE); Phencyclidine Screen, Urine Neg (NEGATIVE)
[2024-10-22] VITALS (9 sets, daily range): BP systolic 114–132; BP diastolic 64–86; PULSE 96–108; RESP 16–19; TEMP 97.4–99.8; O2SAT 92–98
[2024-10-22 06:56] LABS: Basophils # (auto) 0 10 ^3/uL (0-0.2); Basophils % (auto) 0.3 % (0.0-2.0); Eosinophils # (auto) 0.5 10 ^3/uL (0-0.8); Eosinophils % (auto) 5.6 % (0.0-7.0); Hematocrit 41.4 % (41.0-53.0); Hemoglobin 13.9 g/dL (13.5-17.5); Lymphocytes # (auto) 0.9 10 ^3/uL (0.4-5.4); Lymphocytes % (auto) 10.1 % (10.0-50.0); Mean Corpuscular Hemoglobin 28.5 pg (28.0-32.0); Mean Corpuscular Hgb Conc. 33.6 g/dL (32.0-36.0); Mean Corpuscular Volume 84.8 fL (80.0-100.0); Monocytes # (auto) 0.7 10 ^3/uL (0-1.3); Monocytes % (auto) 7.7 % (0.0-12.0); Neutrophils % (auto) 76.3 % (37.0-80.0); Nucleated Red Blood Cells % 0.2 %; Platelet Count (auto) 177 10^3/uL (140-450); Red Blood Cells 4.88 10^6/uL (4.5-5.90); Red Cell Distribution Width 13.7 % (11.8-14.3); White Blood Cell 9.1 10^3/uL (4.4-10.8)
[2024-10-22 07:11] LABS: Albumin 4.1 g/dL (3.2-4.8); Alkaline Phosphatase 79 U/L (46-116); Anion Gap 7 (5-15); BUN/Creatinine Ratio 7.7 (10.0-20.0); Calcium 9.3 mg/dL (8.7-10.4); Carbon Dioxide 28 mmol/L (20-31); Chloride 103 mmol/L (98-107); Potassium 3.7 mmol/L (3.5-5.1); Sodium 138 mmol/L (136-145); Total Protein 6.7 g/dL (5.7-8.2)
[2024-10-22 07:12] LABS: Alanine Aminotransferase < 9 U/L (7-40); Aspartate Aminotransferase 8 U/L (13-40); Bilirubin, Total 0.7 mg/dL (0.2-1.0); Blood Urea Nitrogen 7 mg/dL (9-23); Glucose 114 mg/dL (74-106)
--- NOTE | 2024-10-22 13:46 | DVHPNRES ---
Progress Note Date Seen: Oct 22, 2024 Resident Creating Document: DANIELLA LÓPEZ RESIDENT Medical Necessity Reason Pt with a Central, PICC or Fol: No Subjective Review of Systems Patient seen and examined at the bedside. Postoperative day 1 status post open abdominal appendicectomy, partial Ceacectomy, abscess drainage and abdominal exploration. Overnight events reviewed, patient currently reporting abdominal pain at the surgical site, but better than compared to yesterday, regional vice president surgical sales advised to start Clinimix. Patient reports: Other (Still having abdominal pain but better than yesterday) Objective vital signs Vital Sign Date Time Temp Pulse Resp B/P (MAP) Pulse Ox O2 Delivery O2 Flow Rate FiO2 10/22/24 13:09 93 Nasal Cannula 2.0 10/22/24 13:09 28 10/22/24 12:34 104 19 118/70 10/22/24 09:00 98.0 98.0 Total Intake and Output 10/21/24 10/21/24 10/22/24 15:00 23:00 07:00 Intake Total 310 ml 1175 ml 850 ml Output Total 30 ml 200 ml 1180 ml Balance 280 ml 975 ml -330 ml medications Current Medications Medications Dose Ordered Sig/Tree Route Start Time Stop Time Status Last Admin Dose Admin Ondansetron HCl 4 mg Q4HP PRN IV 10/20/24 22:30 Nitroglycerin 0.4 mg Q5MINP PRN SL 10/20/24 22:30 Morphine Sulfate 2 mg Q30M PRN IV 10/20/24 22:30 Vancomycin HCl 0 ml @ 0 mls/hr UD IV 10/20/24 22:45 Ciprofloxacin 200 ml @ 200 mls/hr Q12HR IV 10/21/24 10:00 10/22/24 09:38 200 MLS/HR Metronidazole 100 ml @ 100 mls/hr Q8HR IV 10/21/24 06:00 10/22/24 05:34 100 MLS/HR Pantoprazole Sodium 40 mg DAILY IV 10/21/24 10:00 10/22/24 09:38 40 MG Albuterol 1.25 mg Q4HP PRN NEB 10/20/24 23:15 Vancomycin HCl 250 ml @ 200 mls/hr Q12H IV 10/21/24 14:00 10/22/24 02:08 200 MLS/HR Dextrose/Sodium Chloride 1,000 ml @ 125 mls/hr Q8H IV 10/21/24 10:45 10/22/24 11:54 125 MLS/HR Acetaminophen 650 mg Q4HP PO 10/21/24 14:00 Hold Ibuprofen 600 mg Q8HP PO 10/21/24 14:00 Hydromorphone HCl 0.25 mg Q4HPRN PRN IV 10/21/24 15:00 10/22/24 09:38 0.25 MG Examination Pt is lying on bed General Appearance: Alert, Oriented X3, Cooperative, Moderate distress due to pain HEENT: Atraumatic, Mucous membranes moist/pink Respiratory: Clear to auscultation, Normal air movement, No added sounds Cardiovascular: Regular rate, Normal S1, Normal S2, No murmurs Abdominal: abdominal binder in place, surgical site is no signs of infection or inflammation, ZEUS drain in place, hypoactive bowel sounds, tenderness Extremities: No edema, Normal pulses, No tenderness/swelling Skin: No Significant rash, except past surgical scars Neuro: Normal speech, sensorimotor deficits none Psych/Mental Status: Mental status NL, Mood NL Nurse was there as arleenne during examination laboratory and microbiology Laboratory Tests 10/22/24 06:04 Test 10/22/24 06:04 Range/Units Serum Glucose 114 H 74-106 mg/dL Microbiology Date/Time Source Procedure Growth Status 10/20/24 13:44 Voided Urine Urine Culture - Preliminary Resulted Labs and/or images reviewed: Labs reviewed by me, Image(s) reviewed by me Problem List/Assessment/Plan Problem List/Assessment/Plan # Acute appendicitis complicated by rupture and abscess s/p open appendicectomy with drainage, partial Ceacectomy # Intra-abdominal abscess complicated with fibrous adhesions - CT evidence of enlarged appendix measuring 2.3 cm with an appendicolith, surrounding inflammatory stranding, and thickening of the adjacent cecum. - Postoperative day 2 status post open abdominal appendicectomy, partial Ceacectomy, abscess drainage and abdominal exploration - IV fluid, IV antibiotics - IV vancomycin, ciprofloxacin, metronidazole to continue, further follow up and management as per General surgery. - incentive spirometry to continue. - Follow up blood cultures to rule out hematogenous spread of bacteremia. - regional vice president surgical sales advanced to start Clinimix. # Acute pancreatitis ruled out # History of allergy /eosinophilia - As needed cetirizine at home, started loratadine in-hospital. # Acute pancreatitis to rule out: mild elevation of lipase, 72: Check lipid panel, HbA1c and repeat lipase tomorrow morning, daily CBC and CMP to follow up. # Microscopic hematuria ruled out # Mild prostatic enlargement: UA unremarkable, culture sent, mostly asymptomatic # H/o Asthma No acute exacerbation - As needed albuterol q.4 hours as needed and budesonide/formoterol q.12 hours as needed. # Grade 1 obesity: - Weight loss counseling done bedside for BMI 30.4, HbA1c 5.2 Protonix SCDs Diet as per surgical team-clinimix Goals of care discussed with the patient for more than 29 minutes: Full code status Case discussed with Dr. Matute, patient and nurse Plan discussed with: Patient Dietary Evaluation Review Comments: 1. Follow up with glucose and A1C levels, offer CCHO-60 diet if hyperglycemia indicated. 2. Advance to texture as tolerated diet when medically feasible. Expected Outcomes/Goals: gradual wt loss, Date of Service: Oct 22, 2024 Billing Provider: EDWARD REIS MD Common Visit Codes: [id number] INP/OBS CARE(HIGH) DANIELLA LÓPEZ RESIDENT Oct 22, 2024 13:45 EDWARD REIS MD Oct 24, 2024 00:08
--- NOTE | 2024-10-22 14:02 | DVHPN2 ---
Progress Note Date Seen: Oct 22, 2024 Medical Necessity Reason Pt with a Central, PICC or Fol: No Objective vital signs Vital Sign Date Time Temp Pulse Resp B/P (MAP) Pulse Ox O2 Delivery O2 Flow Rate FiO2 10/22/24 13:39 104 19 118/70 10/22/24 13:09 93 Nasal Cannula 2.0 10/22/24 13:09 28 10/22/24 09:00 98.0 98.0 Total Intake and Output 10/21/24 10/21/24 10/22/24 15:00 23:00 07:00 Intake Total 310 ml 1175 ml 850 ml Output Total 30 ml 200 ml 1180 ml Balance 280 ml 975 ml -330 ml medications Current Medications Medications Dose Ordered Sig/Tree Route Start Time Stop Time Status Last Admin Dose Admin Ondansetron HCl 4 mg Q4HP PRN IV 10/20/24 22:30 Nitroglycerin 0.4 mg Q5MINP PRN SL 10/20/24 22:30 Morphine Sulfate 2 mg Q30M PRN IV 10/20/24 22:30 Vancomycin HCl 0 ml @ 0 mls/hr UD IV 10/20/24 22:45 Ciprofloxacin 200 ml @ 200 mls/hr Q12HR IV 10/21/24 10:00 10/22/24 09:38 200 MLS/HR Metronidazole 100 ml @ 100 mls/hr Q8HR IV 10/21/24 06:00 10/22/24 13:39 100 MLS/HR Pantoprazole Sodium 40 mg DAILY IV 10/21/24 10:00 10/22/24 09:38 40 MG Albuterol 1.25 mg Q4HP PRN NEB 10/20/24 23:15 Vancomycin HCl 250 ml @ 200 mls/hr Q12H IV 10/21/24 14:00 10/22/24 02:08 200 MLS/HR Dextrose/Sodium Chloride 1,000 ml @ 125 mls/hr Q8H IV 10/21/24 10:45 10/22/24 11:54 125 MLS/HR Acetaminophen 650 mg Q4HP PO 10/21/24 14:00 Hold Ibuprofen 600 mg Q8HP PO 10/21/24 14:00 Hydromorphone HCl 0.25 mg Q4HPRN PRN IV 10/21/24 15:00 10/22/24 13:39 0.25 MG laboratory and microbiology Laboratory Tests 10/22/24 06:04 Test 10/22/24 06:04 Range/Units Serum Glucose 114 H 74-106 mg/dL Microbiology Date/Time Source Procedure Growth Status 10/20/24 13:44 Voided Urine Urine Culture - Preliminary Resulted Problem List/Assessment/Plan Problem List/Assessment/Plan AFEBRILE VSS ABD SOFT WOUND DRESSING DRY DRAIN 40 CC SEROSANGUINEOUS FERRARI IN PLACE DRAINING CLEAR URINE NO BM NO FLATUS NO COMPLICATIONS KEEP NPO IV ABX CLOSE OBSERVATION Plan discussed with: Patient My Orders My Orders Orders - JOSÉ MONTERO MD Procedure Category Date Status Time Hydromorphone PHA 10/21/24 In Process Injection (Dilaudid 15:00 Clinimix Per Pharmacy JD 10/22/24 In Process 08:38 Pt Request For Service PT 10/22/24 Logged 08:38 Dietary Evaluation Review Comments: 1. Follow up with glucose and A1C levels, offer CCHO-60 diet if hyperglycemia indicated. 2. Advance to texture as tolerated diet when medically feasible. Expected Outcomes/Goals: gradual wt loss, JOSÉ MONTERO MD Oct 22, 2024 14:02
[2024-10-22] MEDS ORDERED: CLINIMIX PER PHARMACY 0 ML IV SCH (14:45)
[2024-10-22 15:51] LABS: Magnesium 1.9 mg/dL (1.6-2.6)
[2024-10-22] MEDS: D5W/SOD CHL 0.45% 1,000 ML IV SCH (22:00)
[2024-10-22] MEDS: AMINO ACID INFUSION IN D10W 1,000 ML IV SCH (22:54)
[2024-10-23] VITALS (10 sets, daily range): BP systolic 107–129; BP diastolic 60–77; PULSE 73–99; RESP 17–20; TEMP 97.8–98.3; O2SAT 95–100
[2024-10-23] MEDS: ACCU-CHEK COMFORT CURVE STRIP VI SCH
[2024-10-23] MEDS: InsuLIN REG 1unit/0.01ml Soln (100units/ml) SC SCH
[2024-10-23] MEDS ORDERED: DEXTROSE (50%) 50ML SYRG IV SCH
[2024-10-23 06:56] LABS: Albumin 4.1 g/dL (3.2-4.8); Alkaline Phosphatase 76 U/L (46-116); Anion Gap 8 (5-15); Calcium 9.2 mg/dL (8.7-10.4); Carbon Dioxide 26 mmol/L (20-31); Chloride 105 mmol/L (98-107); Magnesium 1.9 mg/dL (1.6-2.6); Potassium 3.6 mmol/L (3.5-5.1); Sodium 139 mmol/L (136-145); Total Protein 6.9 g/dL (5.7-8.2)
[2024-10-23 06:57] LABS: Alanine Aminotransferase < 9 U/L (7-40); Aspartate Aminotransferase < 8 U/L (13-40); Bilirubin, Total 0.5 mg/dL (0.2-1.0); Blood Urea Nitrogen 8 mg/dL (9-23); Glucose 120 mg/dL (74-106); Phosphorus 3.5 mg/dL (2.4-5.1)
[2024-10-23 07:09] LABS: Basophils # (auto) 0 10 ^3/uL (0-0.2); Basophils % (auto) 0.4 % (0.0-2.0); Eosinophils # (auto) 0.9 10 ^3/uL (0-0.8); Hematocrit 41.6 % (41.0-53.0); Hemoglobin 14.4 g/dL (13.5-17.5); Mean Corpuscular Hemoglobin 29.3 pg (28.0-32.0); Mean Corpuscular Hgb Conc. 34.7 g/dL (32.0-36.0); Mean Corpuscular Volume 84.5 fL (80.0-100.0); Monocytes # (auto) 0.7 10 ^3/uL (0-1.3); Monocytes % (auto) 7.4 % (0.0-12.0); Neutrophils # (auto) 7.4 10 ^3/uL (1.6-8.6); Neutrophils % (auto) 73.2 % (37.0-80.0); Nucleated Red Blood Cells % 0.1 %; Platelet Count (auto) 189 10^3/uL (140-450); Red Blood Cells 4.92 10^6/uL (4.5-5.90); Red Cell Distribution Width 13.7 % (11.8-14.3); White Blood Cell 10.1 10^3/uL (4.4-10.8)
--- NOTE | 2024-10-23 09:32 | DVHPNRES ---
Progress Note Date Seen: Oct 23, 2024 Resident Creating Document: DANIELLA LÓPEZ RESIDENT Medical Necessity Reason Pt with a Central, PICC or Fol: No Subjective Review of Systems Patient seen and examined at the bedside. Postoperative day 3 status post open abdominal appendicectomy. Overnight events reviewed, patient currently reporting abdominal pain at the surgical site, but better than compared to yesterday, surgical supply assistant advised to start Clinimix. Today patient passed gas. Objective vital signs Vital Sign Date Time Temp Pulse Resp B/P (MAP) Pulse Ox O2 Delivery O2 Flow Rate FiO2 10/23/24 08:27 80 20 107/65 10/23/24 08:02 Nasal Cannula* 2 28 10/23/24 07:36 98.3 98 98.3 Total Intake and Output 10/22/24 10/22/24 10/23/24 15:00 23:00 07:00 Intake Total 1300 ml 1050 ml 350 ml Output Total 1200 ml 1250 ml Balance 1300 ml -150 ml -900 ml medications Current Medications Medications Dose Ordered Sig/Tree Route Start Time Stop Time Status Last Admin Dose Admin Ondansetron HCl 4 mg Q4HP PRN IV 10/20/24 22:30 Nitroglycerin 0.4 mg Q5MINP PRN SL 10/20/24 22:30 Morphine Sulfate 2 mg Q30M PRN IV 10/20/24 22:30 Vancomycin HCl 0 ml @ 0 mls/hr UD IV 10/20/24 22:45 Ciprofloxacin 200 ml @ 200 mls/hr Q12HR IV 10/21/24 10:00 10/23/24 08:27 200 MLS/HR Metronidazole 100 ml @ 100 mls/hr Q8HR IV 10/21/24 06:00 10/23/24 05:18 100 MLS/HR Pantoprazole Sodium 40 mg DAILY IV 10/21/24 10:00 10/23/24 08:26 40 MG Albuterol 1.25 mg Q4HP PRN NEB 10/20/24 23:15 Vancomycin HCl 250 ml @ 200 mls/hr Q12H IV 10/21/24 14:00 10/23/24 01:23 200 MLS/HR Acetaminophen 650 mg Q4HP PO 10/21/24 14:00 Hold Ibuprofen 600 mg Q8HP PO 10/21/24 14:00 Hydromorphone HCl 0.25 mg Q4HPRN PRN IV 10/21/24 15:00 10/23/24 08:27 0.25 MG Amino Acids 0 ml @ 0 mls/hr PER PHARMACY IV 10/22/24 14:45 Diagnostic Test (Pha) 1 strip Q6HR 10/23/24 00:00 10/23/24 05:18 1 STRIP Insulin Human Regular FOLLOW SLIDING SCALE Q6HR SC 10/23/24 00:00 10/23/24 00:00 2 UNITS Dextrose 50 ml UD IV 10/23/24 00:00 Amino Acids/ Electrolytes/ Dextrose 1,000 ml @ 41 mls/hr DAILY@2200 IV 10/22/24 22:00 10/22/24 22:54 41 MLS/HR Dextrose/Sodium Chloride 1,000 ml @ 80 mls/hr [id number] IV 10/22/24 22:00 Examination Pt is lying on bed General Appearance: Alert, Oriented X3, Cooperative, Moderate distress due to pain HEENT: Atraumatic, Mucous membranes moist/pink Respiratory: Clear to auscultation, Normal air movement, No added sounds Cardiovascular: Regular rate, Normal S1, Normal S2, No murmurs Abdominal: abdominal binder in place, surgical site is no signs of infection or inflammation, ZEUS drain in place, hypoactive bowel sounds, tenderness Extremities: No edema, Normal pulses, No tenderness/swelling Skin: No Significant rash, except past surgical scars Neuro: Normal speech, sensorimotor deficits none Psych/Mental Status: Mental status NL, Mood NL Nurse was there as sharperone during examination laboratory and microbiology Laboratory Tests 10/23/24 05:48 Test 10/23/24 05:48 Range/Units Serum Glucose 120 H 74-106 mg/dL Microbiology Date/Time Source Procedure Growth Status 10/20/24 13:44 Voided Urine Urine Culture - Final Complete Labs and/or images reviewed: Labs reviewed by me, Image(s) reviewed by me Problem List/Assessment/Plan Problem List/Assessment/Plan # Acute appendicitis complicated by rupture and abscess s/p open appendicectomy with drainage, partial Ceacectomy # Intra-abdominal abscess complicated with fibrous adhesions - CT evidence of enlarged appendix measuring 2.3 cm with an appendicolith, surrounding inflammatory stranding, and thickening of the adjacent cecum. - Postoperative day 3 status post open abdominal appendicectomy, partial Ceacectomy, abscess drainage and abdominal exploration - IV fluid, IV antibiotics - IV vancomycin, ciprofloxacin, metronidazole to continue, further follow up and management as per General surgery. - incentive spirometry to continue. - Follow up blood cultures to rule out hematogenous spread of bacteremia. - surgical supply assistant advanced to start Clinimix. - Patient passed gas. # Acute pancreatitis ruled out # History of allergy /eosinophilia - As needed cetirizine at home, started loratadine in-hospital. # Acute pancreatitis to rule out: mild elevation of lipase, 72: Check lipid panel, HbA1c and repeat lipase tomorrow morning, daily CBC and CMP to follow up. # Microscopic hematuria ruled out # Mild prostatic enlargement: UA unremarkable, culture sent, mostly asymptomatic # H/o Asthma No acute exacerbation - As needed albuterol q.4 hours as needed and budesonide/formoterol q.12 hours as needed. # Grade 1 obesity: - Weight loss counseling done bedside for BMI 30.4, HbA1c 5.2 Protonix SCDs Diet as per surgical team-clinimix Goals of care discussed with the patient for more than 29 minutes: Full code status Case discussed with Dr. Matute, patient and nurse Plan discussed with: Patient My Orders My Orders Orders - DANIELLA LÓPEZ RESIDENT Procedure Category Date Status Time D5w/Sod Chl 0.45% PHA 10/22/24 In Process (D5w 1/2ns) 22:00 Dietary Evaluation Review Comments: 1. Follow up with glucose and A1C levels, offer CCHO-60 diet if hyperglycemia indicated. 2. Advance to texture as tolerated diet when medically feasible. Expected Outcomes/Goals: gradual wt loss, Date of Service: Oct 23, 2024 Billing Provider: EDWARD REIS MD Common Visit Codes: [id number] INP/OBS CARE(HIGH) DANIELLA LÓPEZ RESIDENT Oct 23, 2024 09:32 EDWARD REIS MD Oct 24, 2024 00:14
--- NOTE | 2024-10-23 09:40 | DVHPN2 ---
Progress Note Date Seen: Oct 23, 2024 Medical Necessity Reason Pt with a Central, PICC or Fol: No Objective vital signs Vital Sign Date Time Temp Pulse Resp B/P (MAP) Pulse Ox O2 Delivery O2 Flow Rate FiO2 10/23/24 08:27 80 20 107/65 10/23/24 08:02 Nasal Cannula* 2 28 10/23/24 07:36 98.3 98 98.3 Total Intake and Output 10/22/24 10/22/24 10/23/24 15:00 23:00 07:00 Intake Total 1300 ml 1050 ml 350 ml Output Total 1200 ml 1250 ml Balance 1300 ml -150 ml -900 ml medications Current Medications Medications Dose Ordered Sig/Tree Route Start Time Stop Time Status Last Admin Dose Admin Ondansetron HCl 4 mg Q4HP PRN IV 10/20/24 22:30 Nitroglycerin 0.4 mg Q5MINP PRN SL 10/20/24 22:30 Morphine Sulfate 2 mg Q30M PRN IV 10/20/24 22:30 Vancomycin HCl 0 ml @ 0 mls/hr UD IV 10/20/24 22:45 Ciprofloxacin 200 ml @ 200 mls/hr Q12HR IV 10/21/24 10:00 10/23/24 08:27 200 MLS/HR Metronidazole 100 ml @ 100 mls/hr Q8HR IV 10/21/24 06:00 10/23/24 05:18 100 MLS/HR Pantoprazole Sodium 40 mg DAILY IV 10/21/24 10:00 10/23/24 08:26 40 MG Albuterol 1.25 mg Q4HP PRN NEB 10/20/24 23:15 Vancomycin HCl 250 ml @ 200 mls/hr Q12H IV 10/21/24 14:00 10/23/24 01:23 200 MLS/HR Acetaminophen 650 mg Q4HP PO 10/21/24 14:00 Hold Ibuprofen 600 mg Q8HP PO 10/21/24 14:00 Hydromorphone HCl 0.25 mg Q4HPRN PRN IV 10/21/24 15:00 10/23/24 08:27 0.25 MG Amino Acids 0 ml @ 0 mls/hr PER PHARMACY IV 10/22/24 14:45 Diagnostic Test (Pha) 1 strip Q6HR 10/23/24 00:00 10/23/24 05:18 1 STRIP Insulin Human Regular FOLLOW SLIDING SCALE Q6HR SC 10/23/24 00:00 10/23/24 00:00 2 UNITS Dextrose 50 ml UD IV 10/23/24 00:00 Amino Acids/ Electrolytes/ Dextrose 1,000 ml @ 41 mls/hr DAILY@2200 IV 10/22/24 22:00 10/22/24 22:54 41 MLS/HR Dextrose/Sodium Chloride 1,000 ml @ 80 mls/hr [id number] IV 10/22/24 22:00 laboratory and microbiology Laboratory Tests 10/23/24 05:48 Test 10/23/24 05:48 Range/Units Serum Glucose 120 H 74-106 mg/dL Microbiology Date/Time Source Procedure Growth Status 10/20/24 13:44 Voided Urine Urine Culture - Final Complete Problem List/Assessment/Plan Problem List/Assessment/Plan AFEBRILE VSS ABD SOFT WOUND DRESSING DRY DRAIN 60 CC SEROSANGUINEOUS FERRARI IN PLACE DRAINING CLEAR URINE NO BM FLATUS + NO COMPLICATIONS KEEP NPO ALLOW SIPS OF WATER IV ABX CLOSE OBSERVATION NURSE AT BEDSIDE Plan discussed with: Patient My Orders My Orders Orders - JOSÉ MONTERO MD Procedure Category Date Status Time Clinimix Per Pharmacy PHA 10/22/24 In Process 14:45 Glucose Blood PHA 10/23/24 In Process (Accu-Chek Comfort 00:00 Insulin R (Human) PHA 10/23/24 In Process (Insulin R) 00:00 Dextrose 50% Syringe PHA 10/23/24 In Process 00:00 Amino Acid Infusion PHA 10/22/24 In Process In D10w (Clinimix 4. 22:00 Clinimix Per Pharmacy JD 10/22/24 In Process 22:00 Dietary Evaluation Review Comments: 1. Follow up with glucose and A1C levels, offer CCHO-60 diet if hyperglycemia indicated. 2. Advance to texture as tolerated diet when medically feasible. Expected Outcomes/Goals: gradual wt loss, JOSÉ MONTERO MD Oct 23, 2024 09:40
[2024-10-23] MEDS: VANCOMYCIN 1.5GM/300ML 300 ML IV SCH (10:18)
[2024-10-23] MEDS: ALBUTEROL SULF 2.5 MG/0.5ML(0.5%) NEB SOLN NEB PRN (20:31)
[2024-10-24] VITALS (11 sets, daily range): BP systolic 102–129; BP diastolic 58–79; PULSE 79–99; RESP 17–20; TEMP 97.5–98.6; O2SAT 94–98
[2024-10-24 07:03] LABS: Albumin 4.2 g/dL (3.2-4.8); Alkaline Phosphatase 78 U/L (46-116); Anion Gap 9 (5-15); BUN/Creatinine Ratio 13.2 (10.0-20.0); Bilirubin, Total 0.6 mg/dL (0.2-1.0); Blood Urea Nitrogen 12 mg/dL (9-23); Calcium 9.7 mg/dL (8.7-10.4); Carbon Dioxide 24 mmol/L (20-31); Chloride 105 mmol/L (98-107); Magnesium 1.8 mg/dL (1.6-2.6); Phosphorus 4.5 mg/dL (2.4-5.1); Potassium 3.8 mmol/L (3.5-5.1); Sodium 138 mmol/L (136-145); Total Protein 6.9 g/dL (5.7-8.2)
[2024-10-24 07:06] LABS: Alanine Aminotransferase 9 U/L (7-40); Aspartate Aminotransferase < 8 U/L (13-40); Glucose 115 mg/dL (74-106)
--- NOTE | 2024-10-24 09:17 | DVHPN2 ---
Progress Note Date Seen: Oct 24, 2024 Medical Necessity Reason Pt with a Central, PICC or Fol: No Objective vital signs Vital Sign Date Time Temp Pulse Resp B/P (MAP) Pulse Ox O2 Delivery O2 Flow Rate FiO2 10/24/24 08:00 99 18 115/65 10/24/24 07:46 97 Nasal Cannula 2.0 10/24/24 07:46 28 10/24/24 04:56 97.5 97.5 Total Intake and Output 10/23/24 10/23/24 10/24/24 15:00 23:00 07:00 Intake Total 600 ml 600 ml 130 ml Output Total 800 ml 1800 ml 2300 ml Balance -200 ml -1200 ml -2170 ml medications Current Medications Medications Dose Ordered Sig/Tree Route Start Time Stop Time Status Last Admin Dose Admin Ondansetron HCl 4 mg Q4HP PRN IV 10/20/24 22:30 Nitroglycerin 0.4 mg Q5MINP PRN SL 10/20/24 22:30 Morphine Sulfate 2 mg Q30M PRN IV 10/20/24 22:30 Vancomycin HCl 0 ml @ 0 mls/hr UD IV 10/20/24 22:45 Ciprofloxacin 200 ml @ 200 mls/hr Q12HR IV 10/21/24 10:00 10/23/24 22:00 200 MLS/HR Metronidazole 100 ml @ 100 mls/hr Q8HR IV 10/21/24 06:00 10/24/24 05:32 100 MLS/HR Pantoprazole Sodium 40 mg DAILY IV 10/21/24 10:00 10/23/24 08:26 40 MG Albuterol 1.25 mg Q4HP PRN NEB 10/20/24 23:15 10/23/24 20:31 1.25 MG Acetaminophen 650 mg Q4HP PO 10/21/24 14:00 Hold Ibuprofen 600 mg Q8HP PO 10/21/24 14:00 Hydromorphone HCl 0.25 mg Q4HPRN PRN IV 10/21/24 15:00 10/24/24 07:30 0.25 MG Amino Acids 0 ml @ 0 mls/hr PER PHARMACY IV 10/22/24 14:45 Diagnostic Test (Pha) 1 strip Q6HR 10/23/24 00:00 10/24/24 05:33 1 STRIP Insulin Human Regular FOLLOW SLIDING SCALE Q6HR SC 10/23/24 00:00 10/24/24 05:41 2 UNITS Dextrose 50 ml UD IV 10/23/24 00:00 Amino Acids/ Electrolytes/ Dextrose 1,000 ml @ 41 mls/hr DAILY@2200 IV 10/22/24 22:00 10/23/24 22:01 41 MLS/HR Vancomycin HCl 300 ml @ 200 mls/hr Q8H IV 10/23/24 10:00 10/24/24 01:50 200 MLS/HR laboratory and microbiology Laboratory Tests 10/24/24 06:24 10/23/24 05:48 Test 10/24/24 06:24 Range/Units Serum Glucose 115 H 74-106 mg/dL Microbiology Date/Time Source Procedure Growth Status 10/20/24 13:44 Voided Urine Urine Culture - Final Complete Problem List/Assessment/Plan Problem List/Assessment/Plan AFEBRILE VSS ABD SOFT WOUND DRESSING DRY DRAIN 50 CC SEROSANGUINEOUS FERRARI IN PLACE DRAINING CLEAR URINE NO BM FLATUS + NO COMPLICATIONS ALLOW CLEAR LIQUIDS DC FERRARI IV ABX CLOSE OBSERVATION NURSE AT BEDSIDE Plan discussed with: Patient My Orders My Orders Orders - JOSÉ MONTERO MD Procedure Category Date Status Time Insert Midline ORDERS 10/23/24 Transmitted 12:46 Clinimix Per Pharmacy JD 10/23/24 In Process 22:00 Clear Liq Diet DIET 10/24/24 Transmitted Breakfast D/C Ferrari JD 10/24/24 In Process 09:14 Dietary Evaluation Review Comments: 1. Follow up with glucose and A1C levels, offer CCHO-60 diet if hyperglycemia indicated. 2. Advance to texture as tolerated diet when medically feasible. Expected Outcomes/Goals: gradual wt loss, JOSÉ MONTERO MD Oct 24, 2024 09:17
--- NOTE | 2024-10-24 09:46 | DVHPNRES ---
Progress Note Date Seen: Oct 24, 2024 Resident Creating Document: DANIELLA LÓPEZ RESIDENT Medical Necessity Reason Pt with a Central, PICC or Fol: No Subjective Review of Systems Patient seen and examined at the bedside. Postoperative day 3 status post open abdominal appendicectomy. Overnight events reviewed, patient currently reporting improvement in his abdominal pain at the surgical site, data consultant advised to start clear liquid. Patient reports: Feels better Objective vital signs Vital Sign Date Time Temp Pulse Resp B/P (MAP) Pulse Ox O2 Delivery O2 Flow Rate FiO2 10/24/24 09:34 98 Room Air* 0 21 10/24/24 08:00 99 18 115/65 10/24/24 04:56 97.5 97.5 Total Intake and Output 10/23/24 10/23/24 10/24/24 15:00 23:00 07:00 Intake Total 600 ml 600 ml 130 ml Output Total 800 ml 1800 ml 2300 ml Balance -200 ml -1200 ml -2170 ml medications Current Medications Medications Dose Ordered Sig/Tree Route Start Time Stop Time Status Last Admin Dose Admin Ondansetron HCl 4 mg Q4HP PRN IV 10/20/24 22:30 Nitroglycerin 0.4 mg Q5MINP PRN SL 10/20/24 22:30 Morphine Sulfate 2 mg Q30M PRN IV 10/20/24 22:30 Vancomycin HCl 0 ml @ 0 mls/hr UD IV 10/20/24 22:45 Ciprofloxacin 200 ml @ 200 mls/hr Q12HR IV 10/21/24 10:00 10/23/24 22:00 200 MLS/HR Metronidazole 100 ml @ 100 mls/hr Q8HR IV 10/21/24 06:00 10/24/24 05:32 100 MLS/HR Pantoprazole Sodium 40 mg DAILY IV 10/21/24 10:00 10/23/24 08:26 40 MG Albuterol 1.25 mg Q4HP PRN NEB 10/20/24 23:15 10/23/24 20:31 1.25 MG Acetaminophen 650 mg Q4HP PO 10/21/24 14:00 Hold Ibuprofen 600 mg Q8HP PO 10/21/24 14:00 Hydromorphone HCl 0.25 mg Q4HPRN PRN IV 10/21/24 15:00 10/24/24 07:30 0.25 MG Amino Acids 0 ml @ 0 mls/hr PER PHARMACY IV 10/22/24 14:45 Diagnostic Test (Pha) 1 strip Q6HR 10/23/24 00:00 10/24/24 05:33 1 STRIP Insulin Human Regular FOLLOW SLIDING SCALE Q6HR SC 10/23/24 00:00 10/24/24 05:41 2 UNITS Dextrose 50 ml UD IV 10/23/24 00:00 Amino Acids/ Electrolytes/ Dextrose 1,000 ml @ 41 mls/hr DAILY@2200 IV 10/22/24 22:00 10/23/24 22:01 41 MLS/HR Vancomycin HCl 300 ml @ 200 mls/hr Q8H IV 10/23/24 10:00 10/24/24 01:50 200 MLS/HR Examination Pt is lying on bed General Appearance: Alert, Oriented X3, Cooperative, Moderate distress due to pain HEENT: Atraumatic, Mucous membranes moist/pink Respiratory: Clear to auscultation, Normal air movement, No added sounds Cardiovascular: Regular rate, Normal S1, Normal S2, No murmurs Abdominal: abdominal binder in place, surgical site is no signs of infection or inflammation, ZEUS drain in place, hypoactive bowel sounds, tenderness Extremities: No edema, Normal pulses, No tenderness/swelling Skin: No Significant rash, except past surgical scars Neuro: Normal speech, sensorimotor deficits none Psych/Mental Status: Mental status NL, Mood NL Nurse was there as sharperone during examination laboratory and microbiology Laboratory Tests 10/24/24 06:24 10/23/24 05:48 Test 10/24/24 06:24 Range/Units Serum Glucose 115 H 74-106 mg/dL Microbiology Date/Time Source Procedure Growth Status 10/20/24 13:44 Voided Urine Urine Culture - Final Complete Labs and/or images reviewed: Labs reviewed by me, Image(s) reviewed by me Problem List/Assessment/Plan Problem List/Assessment/Plan # Acute appendicitis complicated by rupture and abscess s/p open appendicectomy with drainage, partial Ceacectomy # Intra-abdominal abscess complicated with fibrous adhesions - CT evidence of enlarged appendix measuring 2.3 cm with an appendicolith, surrounding inflammatory stranding, and thickening of the adjacent cecum. - Postoperative day 3 status post open abdominal appendicectomy, partial Ceacectomy, abscess drainage and abdominal exploration - IV fluid, IV antibiotics - IV vancomycin, ciprofloxacin, metronidazole to continue, further follow up and management as per General surgery. - incentive spirometry to continue. - Follow up blood cultures to rule out hematogenous spread of bacteremia. - data consultant advanced to start clear liquid diet - Patient passed gas. # Acute pancreatitis ruled out # History of allergy /eosinophilia - As needed cetirizine at home, started loratadine in-hospital. # Acute pancreatitis to rule out: mild elevation of lipase, 72: Check lipid panel, HbA1c and repeat lipase tomorrow morning, daily CBC and CMP to follow up. # Microscopic hematuria ruled out # Mild prostatic enlargement: UA unremarkable, culture sent, mostly asymptomatic # H/o Asthma No acute exacerbation - As needed albuterol q.4 hours as needed and budesonide/formoterol q.12 hours as needed. # Grade 1 obesity: - Weight loss counseling done bedside for BMI 30.4, HbA1c 5.2 Protonix SCDs Diet as per surgical team-clear liquid diet Goals of care discussed with the patient for more than 29 minutes: Full code status Case discussed with Dr. Matute, patient and nurse Plan discussed with: Patient Dietary Evaluation Review Comments: 1. Follow up with glucose and A1C levels, offer CCHO-60 diet if hyperglycemia indicated. 2. Advance to texture as tolerated diet when medically feasible. Expected Outcomes/Goals: gradual wt loss, Date of Service: Oct 24, 2024 Billing Provider: EDWARD REIS MD Common Visit Codes: [id number] INP/OBS CARE(HIGH) DANIELLA LÓPEZ RESIDENT Oct 24, 2024 09:46 EDWARD REIS MD Oct 27, 2024 22:23
[2024-10-25] VITALS (13 sets, daily range): BP systolic 111–128; BP diastolic 61–83; PULSE 0–95; RESP 14–20; TEMP 97.4–97.8; O2SAT 92–99
[2024-10-25 06:50] LABS: Alanine Aminotransferase 19 U/L (7-40); Albumin 4.2 g/dL (3.2-4.8); Alkaline Phosphatase 78 U/L (46-116); Anion Gap 9 (5-15); Aspartate Aminotransferase 17 U/L (13-40); BUN/Creatinine Ratio 14.1 (10.0-20.0); Blood Urea Nitrogen 13 mg/dL (9-23); Calcium 9.4 mg/dL (8.7-10.4); Carbon Dioxide 24 mmol/L (20-31); Chloride 105 mmol/L (98-107); Glucose 106 mg/dL (74-106); Magnesium 1.9 mg/dL (1.6-2.6); Potassium 3.7 mmol/L (3.5-5.1); Sodium 138 mmol/L (136-145); Total Protein 6.7 g/dL (5.7-8.2)
[2024-10-25 06:51] LABS: Bilirubin, Total 0.6 mg/dL (0.2-1.0); Phosphorus 3.8 mg/dL (2.4-5.1)
[2024-10-25] MEDS: GASTROGRAFIN 30 ML SOL ONE ×2 (11:57→12:08)
--- NOTE | 2024-10-25 12:29 | DVHPN2 ---
Progress Note Date Seen: Oct 25, 2024 Medical Necessity Reason Pt with a Central, PICC or Fol: No Objective vital signs Vital Sign Date Time Temp Pulse Resp B/P (MAP) Pulse Ox O2 Delivery O2 Flow Rate FiO2 10/25/24 11:11 94 Room Air 10/25/24 11:11 0 21 10/25/24 09:08 89 18 115/68 10/25/24 07:23 97.8 97.8 Total Intake and Output 10/24/24 10/24/24 10/25/24 15:00 23:00 07:00 Intake Total 936 ml 800 ml Output Total 30 ml Balance 936 ml 770 ml medications Current Medications Medications Dose Ordered Sig/Tree Route Start Time Stop Time Status Last Admin Dose Admin Ondansetron HCl 4 mg Q4HP PRN IV 10/20/24 22:30 Nitroglycerin 0.4 mg Q5MINP PRN SL 10/20/24 22:30 Morphine Sulfate 2 mg Q30M PRN IV 10/20/24 22:30 Vancomycin HCl 0 ml @ 0 mls/hr UD IV 10/20/24 22:45 Ciprofloxacin 200 ml @ 200 mls/hr Q12HR IV 10/21/24 10:00 10/25/24 10:32 200 MLS/HR Metronidazole 100 ml @ 100 mls/hr Q8HR IV 10/21/24 06:00 10/25/24 05:36 100 MLS/HR Pantoprazole Sodium 40 mg DAILY IV 10/21/24 10:00 10/25/24 10:32 40 MG Albuterol 1.25 mg Q4HP PRN NEB 10/20/24 23:15 10/23/24 20:31 1.25 MG Acetaminophen 650 mg Q4HP PO 10/21/24 14:00 Hold Ibuprofen 600 mg Q8HP PO 10/21/24 14:00 10/25/24 05:36 600 MG Hydromorphone HCl 0.25 mg Q4HPRN PRN IV 10/21/24 15:00 10/25/24 08:38 0.25 MG Amino Acids 0 ml @ 0 mls/hr PER PHARMACY IV 10/22/24 14:45 Diagnostic Test (Pha) 1 strip Q6HR 10/23/24 00:00 10/25/24 12:04 1 STRIP Insulin Human Regular FOLLOW SLIDING SCALE Q6HR SC 10/23/24 00:00 10/24/24 05:41 2 UNITS Dextrose 50 ml UD IV 10/23/24 00:00 Amino Acids/ Electrolytes/ Dextrose 1,000 ml @ 41 mls/hr DAILY@2200 IV 10/22/24 22:00 10/24/24 22:00 41 MLS/HR Vancomycin HCl 300 ml @ 200 mls/hr Q8H IV 10/23/24 10:00 10/25/24 10:32 200 MLS/HR laboratory and microbiology Laboratory Tests 10/25/24 05:28 10/23/24 05:48 Test 10/25/24 05:28 Range/Units Serum Glucose 106 74-106 mg/dL Microbiology Date/Time Source Procedure Growth Status 10/20/24 13:44 Voided Urine Urine Culture - Final Complete Problem List/Assessment/Plan Problem List/Assessment/Plan AFEBRILE VSS ABD SOFT WOUND DRESSING DRY DRAIN 30 CC SEROSANGUINEOUS FLATUS + NO COMPLICATIONS ALLOW CLEAR LIQUID IV ABX REPEAT CT SCAN ABD PELVIS WITH PO AND IV CONTRAST CLOSE OBSERVATION NURSE AT BEDSIDE Plan discussed with: Patient My Orders My Orders Orders - JOSÉ MONTERO MD Procedure Category Date Status Time [facility] Per Pharmacy JD 10/24/24 In Process 22:00 Comprehensive LAB 10/26/24 Verified Metabolic Panel 04:00 Magnesium LAB 10/26/24 Verified 04:00 Phosphorus LAB 10/26/24 Verified 04:00 Triglycerides LAB 10/26/24 Verified 04:00 [facility]imix Per Pharmacy JD 10/25/24 In Process 22:[address] Ct [address]vis W CT 10/25/24 Logged Con-Oral & Iv 11:44 Dietary Evaluation Review Comments: 1. Follow up with glucose and A1C levels, offer CCHO-60 diet if hyperglycemia indicated. 2. Advance to texture as tolerated diet when medically feasible. Expected Outcomes/Goals: gradual wt loss, JOSÉ MONTERO MD Oct 25, 2024 12:28
[2024-10-25] MEDS: IOHEXOL 300 MG/ML 100ML BOTTLE IJ ONE (13:57)
--- NOTE | 2024-10-25 14:33 | DVHPN2 ---
Subjective pend surg clearance. repeat ctap iv oral contrast today Changes from previous H/P or p: No Changes Eyes: No Pain, No Vision change, No Conjunctivae inflammation, No Eyelid inflammation, No Other, No Redness ENT: No Ear pain, No Ear discharge, No Nose pain, No Nose discharge, No Nose congestion, No Mouth pain, No Mouth swelling, No Throat pain, No Throat swelling, No Other Cardiovascular: No Chest Pain, No Palpitations, No Orthopnea, No Paroxysmal Noc. Dyspnea, No Edema, No Lt Headedness, No Other Respiratory: No Cough, No Dry, No Shortness of breath, No SOB with excertion, No Wheezing, No Hemoptysis, No Pleuritic Pain, No Sputum, No Other Gastrointestinal: Nausea; No Vomiting; Abdominal Pain; No Diarrhea, No Constipation, No Melena, No Hematochezia Genitourinary: No Dysuria, No Frequency, No Incontinence, No Hematuria, No Retention, No Other Musculoskeletal: No other, No neck pain, No shoulder pain, No arm pain, No back pain, No hand pain, No leg pain, No foot pain Skin: No Rash, No Lesions, No Jaundice, No Bruising, No Other Objective Vitals Vital Signs Date Time Temp Pulse Resp B/P (MAP) Pulse Ox O2 Delivery O2 Flow Rate FiO2 10/25/24 13:00 97.6 0 20 128/83 (98) 92 97.6 10/25/24 11:11 Room Air 10/25/24 11:11 0 21 Intake/Output Intake and Output 10/25/24 07:00 Intake Total 1736 ml Output Total 30 ml Balance 1706 ml Intake Oral 1036 ml IV Total 700 ml Drainage Total 30 ml # Voids 5 Medications Current Medications Medications Dose Ordered Sig/Tree Route Start Time Stop Time Status Last Admin Dose Admin Ondansetron HCl 4 mg Q4HP PRN IV 10/20/24 22:30 Nitroglycerin 0.4 mg Q5MINP PRN SL 10/20/24 22:30 Morphine Sulfate 2 mg Q30M PRN IV 10/20/24 22:30 Vancomycin HCl 0 ml @ 0 mls/hr UD IV 10/20/24 22:45 Ciprofloxacin 200 ml @ 200 mls/hr Q12HR IV 10/21/24 10:00 10/25/24 10:32 200 MLS/HR Metronidazole 100 ml @ 100 mls/hr Q8HR IV 10/21/24 06:00 10/25/24 14:29 100 MLS/HR Pantoprazole Sodium 40 mg DAILY IV 10/21/24 10:00 10/25/24 10:32 40 MG Albuterol 1.25 mg Q4HP PRN NEB 10/20/24 23:15 10/23/24 20:31 1.25 MG Acetaminophen 650 mg Q4HP PO 10/21/24 14:00 Hold Ibuprofen 600 mg Q8HP PO 10/21/24 14:00 10/25/24 14:29 600 MG Hydromorphone HCl 0.25 mg Q4HPRN PRN IV 10/21/24 15:00 10/25/24 08:38 0.25 MG Amino Acids 0 ml @ 0 mls/hr PER PHARMACY IV 10/22/24 14:45 Diagnostic Test (Pha) 1 strip Q6HR 10/23/24 00:00 10/25/24 12:04 1 STRIP Insulin Human Regular FOLLOW SLIDING SCALE Q6HR SC 10/23/24 00:00 10/24/24 05:41 2 UNITS Dextrose 50 ml UD IV 10/23/24 00:00 Amino Acids/ Electrolytes/ Dextrose 1,000 ml @ 41 mls/hr DAILY@2200 IV 10/22/24 22:00 10/24/24 22:00 41 MLS/HR Vancomycin HCl 300 ml @ 200 mls/hr Q8H IV 10/23/24 10:00 10/25/24 10:32 200 MLS/HR Laboratory Results Laboratory Tests 10/23/24 05:48 10/25/24 05:28 Chemistry Test 10/25/24 05:28 Albumin 4.2 g/dL (3.2-4.8) Calcium Level 9.4 mg/dL (8.7-10.4) Magnesium Level 1.9 mg/dL (1.6-2.6) Phosphorus Level 3.8 mg/dL (2.4-5.1) Total Protein 6.7 g/dL (5.7-8.2) LFT Test 10/25/24 05:28 Alanine Aminotransferase (ALT) 19 U/L (7-40) Alkaline Phosphatase 78 U/L (46-116) Aspartate Amino Transferase (AST) 17 U/L (13-40) Total Bilirubin 0.6 mg/dL (0.2-1.0) Urinalysis Test 10/20/24 13:44 Urine Color Yellow (Yellow) Urine Clarity Clear (Clear) Urine pH 6.0 (5.0-9.0) Urine Specific [place] 1.029 (1.001-1.035) Urine Protein Negative (Negative) Urine Ketones Negative (Negative) Urine Blood Trace /uL (Negative) H Urine Nitrite Negative (Negative) Urine Bilirubin Negative (Negative) Urine Urobilinogen Normal mg/dL (Negative) Urine Leukocyte Esterase Negative /uL (Negative) Urine RBC 2 /hpf (0 - 3) Urine Microscopic WBC /HPF (0-3) Urine Squamous Epithelial Cells None seen /hpf (<5) Urine Bacteria None seen /hpf (None Seen) Urine Mucus Few (None Seen) Urine Glucose Normal mg/dL (Normal) Microbiology Microbiology Date/Time Source Procedure Growth Status 10/20/24 13:44 Voided Urine Urine Culture - Final Complete Assessment/Plan Assessment/Plan Problem List/Assessment/Plan # Acute appendicitis complicated by rupture and abscess s/p open appendicectomy with drainage, partial Ceacectomy # Intra-abdominal abscess complicated with fibrous adhesions - CT evidence of enlarged appendix measuring 2.3 cm with an appendicolith, surrounding inflammatory stranding, and thickening of the adjacent cecum. - Postoperative day 3 status post open abdominal appendicectomy, partial Ceacectomy, abscess drainage and abdominal exploration - IV fluid, IV antibiotics - IV vancomycin, ciprofloxacin, metronidazole to continue, further follow up and management as per General surgery. - incentive spirometry to continue. - Follow up blood cultures to rule out hematogenous spread of bacteremia. - surgical services assistant advanced to start clear liquid diet - Patient passed gas. # Acute pancreatitis ruled out # History of allergy /eosinophilia - As needed cetirizine at home, started loratadine in-hospital. # Acute pancreatitis to rule out: mild elevation of lipase, 72: Check lipid panel, HbA1c and repeat lipase tomorrow morning, daily CBC and CMP to follow up. # Microscopic hematuria ruled out # Mild prostatic enlargement: UA unremarkable, culture sent, mostly asymptomatic # H/o Asthma No acute exacerbation - As needed albuterol q.4 hours as needed and budesonide/formoterol q.12 hours as needed. # Grade 1 obesity: - Weight loss counseling done bedside for BMI 30.4, HbA1c 5.2 Protonix SCDs Diet as per surgical team-clear liquid diet Plan discussed with: Patient Date of Service: Oct 25, 2024 Billing Provider: VERONICA RUSS MD Common Visit Codes: [id number] INP/OBS CARE(HIGH) VERONICA RUSS MD Oct 25, 2024 14:33
--- NOTE | 2024-10-25 14:41 | DVH ---
Exam: CT CT ABD PELVIS W CON-ORAL IV History: FOLLOW UP ON APPENDECTOMY Comparison Study: 10/20/2024 TECHNIQUE: Multidetector CT of the abdomen and pelvis with IV contrast. Axial, coronal and sagittal m ultiplanar reformats were obtained from the axial data set by the technologist. Radiation Dose Information: CT Dose: CTDI volume is 9.79 mGy. Dose-length product is 483.97 mGy*cm FINDINGS: Trace bilateral pleural effusion with bibasilar atelectasis. Partially visualized heart is unremarka ble. Mild hepatomegaly. Otherwise, liver, spleen, pancreas and adrenal glands are unremarkable. Kidneys, and ureters unremarkable. Focus of air within the nondependent portion of the urinary bladde r most likely iatrogenic from [place] catheter placement. Recommend clinical correlation. Prostate taylor sures 3.4 x 4.1 x 3.5 cm. Stomach is unremarkable. Small bowel loops unremarkable. Is not definitely visualized with postop renny nges of the cecal region and significant fat stranding /edema surrounding the cecum, and most distal ileum . There is extension of the fat stranding into the right hemipelvis. There is foci of free air most prominent over the anterior pelvis. Wall thickening of the cecum. Oral contrast is noted within the stomach, small bowel and large bowel. Small to moderate amount of fecal material within the colon. No evidence of aortic aneurysm or dissection. Multiple subcentimeter mesenteric lymph nodes, largest measuring up to 0.8 cm which may be reactive. There is midline mid ventral abdominal skin adam with associated subcutaneous fat stranding extend ing to the abdominal wall consistent with recent surgery. A right lower abdominal quadrant approach d rainage catheter is noted terminating over the pericecal region. No destructive osseous lesions are noted. IMPRESSION: Appendix is not visualized with pericecal postsurgical changes of the postsurgical changes of the mel[place] tral abdominal wall. There is wall thickening of the cecum with pericecal edema extending into the right hemipelvis which may be associated with recent surgery. Colitis can not be excluded. There is foci of free air most prominent over the Anterior pelvis which is most likely associated wit h the recent surgery. A right lower abdominal quadrant approach drainage catheter is noted terminatin g over the pericecal region. No loculated fluid collection is noted. No evidence of bowel obstruction. There is contrast passage from the stomach into the large bowel.
[2024-10-26] VITALS (8 sets, daily range): BP systolic 109–134; BP diastolic 68–77; PULSE 60–94; RESP 14–20; TEMP 37.1; O2SAT 95–100
[2024-10-26 06:59] LABS: Calcium 9.8 mg/dL (8.7-10.4); Chloride 105 mmol/L (98-107); Sodium 138 mmol/L (136-145)
[2024-10-26 07:00] LABS: Anion Gap 10 (5-15); Carbon Dioxide 23 mmol/L (20-31)
[2024-10-26 07:05] LABS: BUN/Creatinine Ratio 13.4 (10.0-20.0); Blood Urea Nitrogen 13 mg/dL (9-23); Glucose 95 mg/dL (74-106)
[2024-10-26 07:12] LABS: Hemoglobin 14.1 g/dL (13.5-17.5); Mean Corpuscular Hgb Conc. 32.8 g/dL (32.0-36.0); Mean Corpuscular Volume 85.4 fL (80.0-100.0); Platelet Count (auto) 219 10^3/uL (140-450); Red Blood Cells 5.03 10^6/uL (4.5-5.90); Red Cell Distribution Width 13.5 % (11.8-14.3); White Blood Cell 7.7 10^3/uL (4.4-10.8)
[2024-10-26 07:25] LABS: Basophils % (manual) 0 (0.0-2.0); Blast Cells 0; Metamyelocytes % 0; Myelocytes % 0; Promyelocytes % 0; Reactive Lymphocytes 0
[2024-10-26 08:13] LABS: Band Neutrophils % (manual) 1; Eosinophils % (manual) 17 (0-7); Lymphocytes % (manual) 10 (10.0-50.0); Monocytes % (manual) 8 (0-12)
[2024-10-26 08:15] LABS: Platelet Estimate Adequate; RBC Morphology Normal
--- NOTE | 2024-10-26 13:47 | DVHPN2 ---
Progress Note Date Seen: Oct 26, 2024 Medical Necessity Reason Pt with a Central, PICC or Fol: No Objective vital signs Vital Sign Date Time Temp Pulse Resp B/P (MAP) Pulse Ox O2 Delivery O2 Flow Rate FiO2 10/26/24 12:41 98.7 94 20 134/77 (96) 98 98.7 10/26/24 10:11 Room Air* 0 21 Total Intake and Output 10/25/24 10/25/24 10/26/24 15:00 23:00 07:00 Intake Total 900 ml 480 ml Output Total 1000 ml 25 ml Balance -100 ml 455 ml medications Current Medications Medications Dose Ordered Sig/Tree Route Start Time Stop Time Status Last Admin Dose Admin Ondansetron HCl 4 mg Q4HP PRN IV 10/20/24 22:30 Nitroglycerin 0.4 mg Q5MINP PRN SL 10/20/24 22:30 Morphine Sulfate 2 mg Q30M PRN IV 10/20/24 22:30 Vancomycin HCl 0 ml @ 0 mls/hr UD IV 10/20/24 22:45 Ciprofloxacin 200 ml @ 200 mls/hr Q12HR IV 10/21/24 10:00 10/26/24 10:31 200 MLS/HR Metronidazole 100 ml @ 100 mls/hr Q8HR IV 10/21/24 06:00 10/26/24 05:16 100 MLS/HR Pantoprazole Sodium 40 mg DAILY IV 10/21/24 10:00 10/26/24 10:31 40 MG Albuterol 1.25 mg Q4HP PRN NEB 10/20/24 23:15 10/25/24 22:43 1.25 MG Acetaminophen 650 mg Q4HP PO 10/21/24 14:00 Hold Ibuprofen 600 mg Q8HP PO 10/21/24 14:00 10/26/24 05:15 600 MG Hydromorphone HCl 0.25 mg Q4HPRN PRN IV 10/21/24 15:00 10/26/24 08:53 0.25 MG Vancomycin HCl 300 ml @ 200 mls/hr Q8H IV 10/23/24 10:00 10/26/24 10:32 200 MLS/HR laboratory and microbiology Laboratory Tests 10/26/24 06:01 Test 10/26/24 06:01 Range/Units Serum Glucose 95 74-106 mg/dL Microbiology Date/Time Source Procedure Growth Status 10/20/24 13:44 Voided Urine Urine Culture - Final Complete Problem List/Assessment/Plan Problem List/Assessment/Plan AFEBRILE VSS ABD SOFT WOUND DRESSING DRY DRAIN 25 CC SEROSANGUINEOUS FLATUS + NO COMPLICATIONS DONN CLEAR LIQUIDS IV ABX REPEAT CT SCAN ABD PELVIS WITH PO AND IV CONTRAST RESIDUAL CECAL INFLAMMATION ADVANCE DIET DONN CLEARED FOR DISCHARGE INSTRUCTIONS RE DIET ACTIVITY F/UP DRAIN CARE GIVEN NURSE AT BEDSIDE Plan discussed with: Patient My Orders My Orders Orders - JOSÉ MONTERO MD Procedure Category Date Status Time Full Liq Diet DIET 10/26/24 Transmitted Breakfast Communication Order ORDERS 10/26/24 Transmitted 11:44 Dietary Evaluation Review Comments: 1. Follow up with glucose and A1C levels, offer CCHO-60 diet if hyperglycemia indicated. 2. Advance to texture as tolerated diet when medically feasible. Expected Outcomes/Goals: gradual wt loss, JOSÉ MONTERO MD Oct 26, 2024 13:47
[2024-10-26] MEDS ORDERED: METR-344 PO (13:55)
[2024-10-26] MEDS ORDERED: FAMO-161 PO (13:55)
[2024-10-26] MEDS ORDERED: IBU600T PO (13:55)
[2024-10-26] MEDS ORDERED: CIPR500T4 PO (13:55)
--- NOTE | 2024-10-26 13:59 | DVHDS2 ---
Discharge Summary Date of Admission Oct 20, 2024 at 22:28 Date of Discharge: Oct 26, 2024 Labs/Diagnostic Data: Laboratory Results Test 10/26/24 06:01 10/25/24 18:17 10/25/24 09:40 10/25/24 05:28 White Blood Count 7.7 10^3/uL (4.4-10.8) Red Blood Count 5.03 10^6/uL (4.5-5.90) Hemoglobin 14.1 g/dL (13.5-17.5) Hematocrit 43.0 % (41.0-53.0) Mean Corpuscular Volume 85.4 fL (80.0-100.0) Mean Corpuscular Hemoglobin 28.0 pg (28.0-32.0) Mean Corpuscular Hemoglobin Concent 32.8 g/dL (32.0-36.0) Red Cell Distribution Width 13.5 % (11.8-14.3) Platelet Count 219 10^3/uL (140-450) Mean Platelet Volume 10.0 fL (6.9-10.8) Neutrophils (%) (Auto) % (37.0-80.0) Lymphocytes (%) (Auto) % (10.0-50.0) Monocytes (%) (Auto) % (0.0-12.0) Basophils (%) (Auto) % (0.0-2.0) Neutrophils # (Auto) 10 ^3/uL (1.6-8.6) Lymphocytes # (Auto) 10 ^3/uL (0.4-5.4) Monocytes # (Auto) 10 ^3/uL (0-1.3) Differential Total Cells Counted 100.0 (100) Neutrophils % (Manual) 64 (37.0-80.0) Band Neutrophils % (Manual) 1 Lymphocytes % (Manual) 10 (10.0-50.0) Monocytes % (Manual) 8 (0-12) Eosinophils % (Manual) 17 (0-7) Basophils % (Manual) 0 (0.0-2.0) Metamyelocytes % (manual) 0 Myelocytes % (Manual) 0 Promyelocytes % (Manual) 0 Blast Cells % (Manual) 0 Reactive Lymphocytes 0 Platelet Estimate Adequate Red Blood Cell Morphology Normal Sodium Level 138 mmol/L (136-145) Potassium Level 4.0 mmol/L (3.5-5.1) Chloride Level 105 mmol/L (98-107) Carbon Dioxide Level 23 mmol/L (20-31) Anion Gap 10 (5-15) Blood Urea Nitrogen 13 mg/dL (9-23) Creatinine 0.97 mg/dL (0.700-1.30) Glomerular Filtration Rate Calc 109 mL/min (>90) BUN/Creatinine Ratio 13.4 (10.0-20.0) Serum Glucose 95 mg/dL (74-106) Calcium Level 9.8 mg/dL (8.7-10.4) POC Glucose 91 mg/dl (70-106) Vancomycin Level Trough 13.4 ug/mL (5-10) Phosphorus Level 3.8 mg/dL (2.4-5.1) Magnesium Level 1.9 mg/dL (1.6-2.6) Total Bilirubin 0.6 mg/dL (0.2-1.0) Aspartate Amino Transferase (AST) 17 U/L (13-40) Alanine Aminotransferase (ALT) 19 U/L (7-40) Alkaline Phosphatase 78 U/L (46-116) Total Protein 6.7 g/dL (5.7-8.2) Albumin 4.2 g/dL (3.2-4.8) Test 10/23/24 05:48 10/21/24 18:00 10/21/24 04:56 10/20/24 13:44 Eosinophils (%) (Auto) 9.0 % (0.0-7.0) Eosinophils # (Auto) 0.9 10 ^3/uL (0-0.8) Basophils # (Auto) 0 10 ^3/uL (0-0.2) Nucleated Red Blood Cells 0.1 % Urine Opiates Screen Pos (NEGATIVE) Urine Fentanyl Screen Pos (NEGATIVE) Urine Barbiturates Screen Neg (NEGATIVE) Urine Phencyclidine Screen Neg (NEGATIVE) Urine Amphetamines Screen Neg (NEGATIVE) Urine Benzodiazepines Screen Neg (NEGATIVE) Urine Cocaine Screen Neg (NEGATIVE) Urine Cannabinoids Screen Neg (NEGATIVE) Hemoglobin A1c 5.2 % A1C (<5.7) Triglycerides Level 47 mg/dL (< 150) Cholesterol Level 129 mg/dL (< 200) LDL Cholesterol 84 mg/dL (< 100) HDL Cholesterol 35 mg/dL (40-59) Lipase 41 U/L (12-53) Thyroid Stimulating Hormone (TSH) 1.07 uIU/mL (0.55-4.78) Urine Color Yellow (Yellow) Urine Clarity Clear (Clear) Urine pH 6.0 (5.0-9.0) Urine Specific [place] 1.029 (1.001-1.035) Urine Protein Negative (Negative) Urine Ketones Negative (Negative) Urine Blood Trace /uL (Negative) Urine Nitrite Negative (Negative) Urine Bilirubin Negative (Negative) Urine Urobilinogen Normal mg/dL (Negative) Urine Leukocyte Esterase Negative /uL (Negative) Urine RBC 2 /hpf (0 - 3) Urine Microscopic WBC /HPF (0-3) Urine Squamous Epithelial Cells None seen /hpf (<5) Urine Bacteria None seen /hpf (None Seen) Urine Mucus Few (None Seen) Urine Glucose Normal mg/dL (Normal) Other Laboratory Tests 10/26/24 06:01 Brief Hx & Hospital Course: Mr. Wallace, a 28-year-old male with no significant medical except allergic history presented to the emergency department with a chief complaint of progressive sharp, constant right lower quadrant pain and dysuria for the past five days with intermittent nausea. Despite normal blood work and urinalysis results from an urgent care visit, his pain has worsened. He denies any associated symptoms such as vomiting, diarrhea, fever, chills, rectal bleeding, hematuria, or back pain. The patient has acute appendicitis with adjacent cecal inflammation, mild prostatic enlargement, and no signs of bowel obstruction or other acute abdominal or pelvic processes. Surgery production zone leader Dr. Calixto evaluated the patient and decided for urgent in-hospital appendicectomy with abdominal exploration, which med surgery was change to open hello abdomen surgery. He has a severe allergy to penicillins. CT evidence of enlarged appendix measuring 2.3 cm with an appendicolith, surrounding inflammatory stranding, and thickening of the adjacent cecum. Postoperative day 5 status post open abdominal appendicectomy, partial Ceacectomy, abscess drainage and abdominal exploration. cleared for dc, cipro flagyl for 2 weeks Condition at Discharge: Good Final Diagnosis/Problems List acute appendicitis s/p exlap Discharge Disposition: Home Discharge Instruct/Medications Diet: See Comment Diet comment: full liquid Activity: No Restrictions, As Tolerated Follow Up/Referral: surgery Medications: cipro flagyl motrin pepcid Discharge Statement: "Patient was advised to return to the ER or call 911 if any headaches, dizziness, shortness of breath, chest pain, abdominal pain, bleeding, fevers, or worsening of medical condition. Patient was counseled about treatment plan, medications, possible side effects, patientverbalized understanding. All questions were answered to the best of my ability. This discharge took greater then 30 minutes in planning, reviewing documentation, counseling the patient, and discussing with other team members." ASSESSMENT ASSESSMENT Assessment # Acute appendicitis complicated by rupture and abscess s/p open appendicectomy with drainage, partial Ceacectomy # Intra-abdominal abscess complicated with fibrous adhesions # Acute pancreatitis ruled out # History of allergy /eosinophilia # Acute pancreatitis to rule out: mild elevation of lipase, 72: Check lipid panel, HbA1c and repeat lipase tomorrow morning, daily CBC and CMP to follow up. # Microscopic hematuria ruled out # Mild prostatic enlargement: UA unremarkable, culture sent, mostly asymptomatic # H/o Asthma No acute exacerbation # Grade 1 obesity: Date of Service: Oct 26, 2024 Billing Provider: VERONICA RUSS MD Common Visit Codes: [id number] DISCH DAY >30min VERONICA RUSS MD Oct 26, 2024 13:59
== END 2024-10-26 14:25 | disposition home or self-care (01) | DRG 337 ==
LOC: ER 12:29 → OVERFLOW 22:28 → CENTRAL 23:30
PROVIDERS: ADMIT Student in an Organized Health Care Education/Training Program; ATTEND Student in an Organized Health Care Education/Training Program
PROC: 0WJG4ZZ Inspection of Peritoneal Cavity, Percutaneous Endoscopic Approach (ICD-10-PCS; 2024-10-20)
PROC: 0DNH0ZZ Release Cecum, Open Approach (ICD-10-PCS; 2024-10-20)
PROC: 0DTJ0ZZ Resection of Appendix, Open Approach (ICD-10-PCS; principal; 2024-10-20 19:26)
DX: K35.33 Acute appendicitis with perforation, localized peritonitis, and gangrene, with abscess (principal); J45.909 Unspecified asthma, uncomplicated; N40.0 Benign prostatic hyperplasia without lower urinary tract symptoms; E66.9 Obesity, unspecified; Z88.0 Allergy status to penicillin; Z68.30 Body mass index [BMI] 30.0-30.9, adult; Z79.899 Other long term (current) drug therapy
CPT/HCPCS: 36415; 74177; 80048; 80053; 80061; 80202; 80307; 81001; 82962; 83036; 83690; 83735; 84100; 84443; 85007; 85025; 85027; 87086; 94640; 96361; 96374; 96375; 97110; 97116; 97163; 99291; G0378; J0131; J1815; J1956; J2003; J2250; J2405; J2470; J2704; J3490